=== PATIENT | female | born 1935 | race Caucasian/White ===

== ENCOUNTER 2019-07-04 10:18 | Outpatient (CLI) | payer MEDICARE, MEDICAID, SELFPAY ==
--- NOTE | 2019-07-04 10:35 | MM_ITS ---
WS: [id number] DIAGNOSTIC BILATERAL DIGITAL MAMMOGRAM WITH CAD HISTORY: HX OF BREAST CA, post surgery LEFT breast. COMPARISON: 10/12/2018 and 10/11/2017 and 10/04/2016 TECHNIQUE: Bilateral craniocaudad, mediolateral oblique, and mediolateral views are submitted. Comput er aided detection utilized. Breast composition: The breasts are heterogeneously dense, which may obscure small masses. Scattered calcifications in each breast. Volume loss in the LEFT breast from prior lumpectomy. There is also sk in thickening in the LEFT breast which is probably from prior radiation. No recurrent mass. MM/[place] [id number] IMPRESSION: BI-RADS: 2-Benign FOLLOW UP: 1 Year Follow-up
== END 2019-07-04 10:19 | disposition home or self-care (01) ==
LOC: RADSHAW 10:30
PROVIDERS: Family Provider Family Medicine; PCP Family Medicine; Visit Provider Family Medicine
DX: Z85.3 Personal history of malignant neoplasm of breast (principal)
CPT/HCPCS: 77066

== ENCOUNTER 2019-11-27 11:55 | Emergency (ER) | payer MEDICARE, MEDICAID, SELFPAY ==
[2019-11-27 12:00] VITALS: BP 184/108; PULSE 69; RESP 16; TEMP 36.7; O2SAT 96; BMI 18.1
--- NOTE | 2019-11-27 12:22 | CT_ITS ---
WS: [id number] CT HEAD NONCONTRAST HISTORY: trauma TECHNIQUE: Contiguous axial imaging performed through the brain in 2.5 mm imaging. Bone and soft tiss ue windows. Sagittal and coronal reformats reviewed. All CT scans at [facility] use at ast one of these dose optimization techniques: automated exposure control; mA and/or kV adjustment pe r patient size (includes targeted exams where dose is matched to clinical indication); or iterative r econstruction. DLP: 747.37 mGy.cm COMPARISON: None available. No acute intracranial hemorrhage, midline shift or mass effect. Moderate atrophy and chronic ischemic changes throughout white matter. Multiple bilateral lacunar infarcts in the basal ganglia. Additional lacunar infarct in the RIGHT pos terior cr radiata. Ventricles: Normal size with no hydrocephalus. Paranasal sinuses: As visualized are clear. Mastoid air cells: Well pneumatized. Calvarium and scalp: Skull is intact with no soft tissue edema or swelling. CT/CT head wo con* [id number] IMPRESSION: 1. No acute intracranial hemorrhage or edema. 2. Moderate cerebral atrophy with chronic ischemic changes and lacunar infarct s.
--- NOTE | 2019-11-27 12:22 | ECG_ITS ---
Measurements Intervals [place] Rate: 68 P: 70 RI: 155 QRS: -58 QRSD: 92 T: 27 QT: 405 QTc: 433 SINUS RHYTHM LEFT AXIS DEVIATION [QRS AXIS < -30] INCOMPLETE RIGHT BUNDLE BRANCH BLOCK SEPTAL MYOCARDIAL INFARCTION , PROBABLY OLD [40+ ms Q WAVE IN V1/V2] No previous ECG available for comparison Electronically Signed On 11-27-2019 19:58:40 CDT by Lara Romano M.D. [id number] f
--- NOTE | 2019-11-27 12:22 | CT_ITS ---
WS: [id number] CT CERVICAL SPINE HISTORY: trauma TECHNIQUE: Contiguous 2.5 mm axial imaging performed through the entire cervical spine. Sagittal and coronal reformats also performed. All CT scans at [facility] use at least one of these do se optimization techniques: automated exposure control; mA and/or kV adjustment per patient size (inc ludes targeted exams where dose is matched to clinical indication); or iterative reconstruction. DLP: 289.14 mGy.cm COMPARISON: None available. Posterior cervical alignment is normal. Very mild narrowing of the disc spaces. There is very slight anterior wedging of C5. Facet joints are normally aligned. Craniocervical junction is normal. Lateral masses of C1 and C2 are aligned. C2-C3: Normal. C3-C4: Normal. C4-C5: Facet joint arthritis. No stenosis or fracture. C5-C6: Facet joint arthritis. No stenosis or fracture. C6-C7: Facet joint arthritis without fracture. C7-T1: Normal. Soft tissues are normal. Lung apices are clear. CT/CT cervical spin wo con* [id number] IMPRESSION: 1. No acute cervical spine fracture. 2. Very slight anterior wedging of C5 is probably from remote disease. No acut e fracture lines are identified.
--- NOTE | 2019-11-27 12:22 | XR_ITS ---
WS: [id number] PORTABLE CHEST HISTORY: chest pain COMPARISON: 08/12/2018 Lungs are clear and well expanded. No pleural effusion or pneumothorax. Cardiac size: Normal. Mediastinum/Aorta: Normal mediastinum. No osseous abnormality seen. XR/XR chest 1V portable [id number] IMPRESSION: Unremarkable portable chest.
--- NOTE | 2019-11-27 12:25 | ED_ITS ---
HPI - Fall General: Chief Complaint: Fall Stated Complaint: FALL/LAC TO HEAD Time Seen by Provider: 11/27/19 12:02 Source: patient Mode of arrival: EMS Limitations: no limitations and altered mental status History of Present Illness: HPI Narrative: Patient is an 84-year-old female who presents to ED today via EMS for complaints of a fall. Patient tells me she was walking and then states all of a sudden I just could not walk anymore . Patient does not seem to remember most of the events leading up to the fall. She appears to have baseline dementia. According to EMS who spoke to the daughter, patient has had declining mental and physical function over the past few weeks. MD complaint: fall Onset (ago): hour(s) Fall from: standing Associated symptoms-after fall: Reports difficulty walking and headache(s); Denies abdominal pain, chest pain, lightheadedness or neck pain Review of Systems Const: Denies: fever(s), chills or body aches Eyes: Denies: change in vision or blurry vision Card: Denies: chest pain, palpitations, irregular heart rhythm, edema, swelling of feet/ankles, lightheadedness, syncope, pre-syncope, dyspnea on exertion, orthopnea or leg pain with exertion Resp: Denies: dyspnea or chest congestion GI: Denies: abdominal pain, nausea or vomiting : Denies: flank pain, difficulty voiding, dysuria, urinary frequency or urinary urgency Musc: Denies: neck pain, back pain, extremity pain, extremity swelling, joint pain or joint swelling Neuro: Reports: headache(s), difficulty walking and frequent falls; Denies: numbness in extremities, weakness in extremities, sensory changes, dizziness or Slurred speech present [facility] ED PFSH: Social History Smoking and tobacco status: current some day smoker Physical Exam Const: COMMON NORMALS: no acute distress, patient oriented x3 and alert GENERAL APPEARANCE: cooperative and frail appearing NUTRITIONAL APPEARANCE: cachectic ORIENTATION/CONSCIOUSNESS: Yes oriented to person, Yes oriented to place and Yes oriented to time HENMT: COMMON NORMALS: hearing grossly normal bilaterally, external ears normal, EAC's normal, TM's normal bilaterally, Normal external nose present, moist oral mucous membranes and oropharynx normal HEAD & SCALP: other (1.5cm laceration L posterior scalp) FACE & SINUS: normal facial exam and sinuses nontender NOSE: Normal external nose present EXTERNAL EAR: Yes external ears normal EXTERNAL AUDITORY CANAL: EAC's normal TYMPANIC MEMBRANE: TM's normal bilaterally TEETH & GINGIVA: Yes edentulous Eye: COMMON NORMALS: Equal, round and reactive pupils present, EOMs intact bi laterally, conjunctivae normal and no scleral icterus CONJUNCTIVA: Yes conjunctivae normal PUPIL: Yes Equal, round and reactive pupils present Neck/C-Spine: COMMON NORMALS: full ROM CERVICAL SPINE: Yes cervical ROM normal, No pain with cervical ROM and No Cervical spine tenderness Chest: COMMONS NORMALS: normal inspection of the chest and normal palpation of entire chest wall Resp: COMMON NORMALS: normal respiratory effort and clear to auscultation bilaterally AUSCULTATION: clear to auscultation bilaterally Cardio: COMMON NORMALS: regular rate and regular rhythm RATE: regular rate RHYTHM: regular rhythm GI: COMMON NORMALS: Normal to inspection, nondistended, normoactive bowel sounds present, Soft to palpation, non-tender, No hepatosplenomegaly present and no masses PALPATION: Yes Soft to palpation and Yes No hepatosplenomegaly present : COMMON NORMALS: Yes no CVA tenderness BLADDER/KIDNEY EXAM: Yes no CVA tenderness Back/Pelvis: COMMON NORMALS: no CVA tenderness, thoracic and lumbar spine normal to inspection, no thoracic nor lumbar tenderness, thoraco-lumbar ROM normal and straight leg raise negative bilaterally Extremity: COMMON NORMALS: normal to inspection and full ROM GENERAL: Yes normal exam except as noted Neuro: PATRICIA COMA SCALE: document GCS findings [place] coma scale eye opening: Spontaneous Patricia coma scale verbal response: Orientated Patricia coma scale motor response: Obey commands Patricia coma scale total score: 15 COMMON NORMALS: patient oriented x3, CN's II-XII intact bilaterally, moves all extremities, no focal motor deficits and no sensory deficits noted SENSORIUM/ORIENTATION: Yes alert, Yes oriented to person, Yes oriented to place and Yes oriented to time SPEECH: speech normal Skin: OTHER: small skin tear to L buttock Procedures Laceration Laceration 1: Site: scalp Side (If applicable): left Size (cm): 1.5 Description: linear Depth: simple, single layer Pre-repair: wound explored and irrigated extensively Skin layer closed with: other (3 angel) Course Vital Signs: Vital signs: Vital Signs Temperature 98.1 F 11/27/19 12:00 Pulse Rate 69 11/27/19 16:20 Respiratory Rate 11 L 11/27/19 16:20 Blood Pressure 155/106 11/27/19 16:20 Pulse Oximetry 91 11/27/19 16:20 MDM - Fall MDM Narrative: Medical decision making narrative: Daughter has arrived and answers any further questions. Again she states patient has had trouble with ambulation over the past several weeks. She states there is no confirmed diagnosis of dementia however she suspects this. Daughter states she is at her baseline currently. I spoke to daughter extensively about patient being a significant fall risk living alone and she agrees. Patient was able to ambulate here in ED w/o difficulty although she seemed very unsteady on her feet. Daughter states if patient is cleared medically she would like to take her home and agrees to stay with patient until they can get follow-up with Dr. Whaley. They agree to then speak to him about in-home care or senior living home placement. Pts work up here showing possible UTI-will treat for this. Initial trop at 23 (this was not ordered as a series so when it was elevated I added another). Repeat trop at 20. EKG w/o ischemic changes. Head CT/Cervical CT normal. Small laceration on her head repaired. Lab Data: Labs: Lab Results 11/27/19 11/27/19 11/27/19 Range/Units 12:35 12:35 12:35 WBC 12.0 H (4.0-10.0) 10^3/ uL RBC 4.68 (4.1-5.3) 10^6/u L Hgb 14.1 (11.5-15.3) g/dL Hct 44.4 (37.0-47.0) % MCV 94.9 (81-99) fL MCH 30.1 (28.0-34.0) pg MCHC 31.8 (30.0-36.0) g/dL RDW 12.7 (12.1-15.1) % Plt Count 190 (130-400) 10^3/c mm MPV 10.7 H (7.4-10.4) fL Neut % (Auto) 81.2 % Lymph % (Auto) 11.5 % [place] % (Auto) 5.9 % Eos % (Auto) 0.5 % Baso % (Auto) 0.3 % Neut # (Auto) 9.7 H (1.8-7.7) 10^3/u L Lymph # (Auto) 1.4 (0.8-4.8) 10^3/u L [place] # (Auto) 0.7 (0.2-0.9) 10^3/u L Eos # (Auto) 0.1 (0.0-0.8) 10^3/u L Baso # (Auto) 0.0 (0.0-0.1) 10^3/u L Nucleated RBC % (a uto) 0 % Nucleated RBCs # 0.0 /100WBC PT (10.5-13.3) SECO NDS INR (0.8-1.2) APTT (23.9-36.7) SECO NDS Sodium 138 (136-145) mmol/L Potassium 4.4 (3.5-5.1) mmol/L Chloride 103 (98-107) mmol/L Carbon Dioxide 26 (22-29) mmol/L Anion Gap 13.4 (5-19) BUN 16 (8-23) mg/dL Creatinine 0.9 (0.5-0.9) mg/dL Glucose 91 (65-115) mg/dL Calculated Osmolal ity 282 L (285-295) mOsm/k g Calcium 8.9 (8.5-10.5) mg/dL Magnesium 2.0 (1.7-2.3) mg/dL Total Bilirubin 0.7 (0.15-1.2) mg/dL AST 21 (0-32) U/L ALT 16 (0-33) U/L Alkaline Phosphata se 71 (35-105) IU/L Troponin T Gen 5 n g/L 23 H (0-10) ng/mL Total Protein 5.7 L (6.6-8.7) g/dL Albumin 4.0 (3.5-5.2) g/dL Globulin 1.7 (1.3-4.6) g/dL Urine Color (Yellow) Urine Appearance (CLEAR) Urine pH (5-7) Ur Specific Gravit y (1.005-1.030) Urine Protein (Negative) Urine Glucose (UA) (Normal) Urine Ketones (Negative) Urine Blood (Negative) Urine Nitrate (Negative) Urine Bilirubin (NEGATIVE) Urine Urobilinogen (Negative) mg/dL Ur Leukocyte Aileen ase (Negative) Urine RBC (0-2) /hpf Urine WBC (0-5) /hpf Ur Squamous Epith Cells (0-5) Urine Bacteria (NONE) Urine Opiates Scre en (Negative) ng/mL Ur Barbiturates Sc reen (Negative) ng/mL Ur Phencyclidine S crn (Negative) ng/mL Ur Amphetamines Sc reen (Negative) ng/mL U Benzodiazepines Scrn (Negative) ng/mL Urine Cocaine Scre en (Negative) ng/mL U Marijuana (THC) Screen (Negative) ng/mL 11/27/19 11/27/19 11/27/19 Range/Units 13:29 13:29 13:40 WBC (4.0-10.0) 10^3/ uL RBC (4.1-5.3) 10^6/u L Hgb (11.5-15.3) g/dL Hct (37.0-47.0) % MCV (81-99) fL MCH (28.0-34.0) pg MCHC (30.0-36.0) g/dL RDW (12.1-15.1) % Plt Count (130-400) 10^3/c mm MPV (7.4-10.4) fL Neut % (Auto) % Lymph % (Auto) % [place] % (Auto) % Eos % (Auto) % Baso % (Auto) % Neut # (Auto) (1.8-7.7) 10^3/u L Lymph # (Auto) (0.8-4.8) 10^3/u L [place] # (Auto) (0.2-0.9) 10^3/u L Eos # (Auto) (0.0-0.8) 10^3/u L Baso # (Auto) (0.0-0.1) 10^3/u L Nucleated RBC % (a uto) % Nucleated RBCs # /100WBC PT 14.00 H (10.5-13.3) SECO NDS INR 1.05 (0.8-1.2) APTT 28.0 (23.9-36.7) SECO NDS Sodium (136-145) mmol/L Potassium (3.5-5.1) mmol/L Chloride (98-107) mmol/L Carbon Dioxide (22-29) mmol/L Anion Gap (5-19) BUN (8-23) mg/dL Creatinine (0.5-0.9) mg/dL Glucose (65-115) mg/dL Calculated Osmolal ity (285-295) mOsm/k g Calcium (8.5-10.5) mg/dL Magnesium (1.7-2.3) mg/dL Total Bilirubin (0.15-1.2) mg/dL AST (0-32) U/L ALT (0-33) U/L Alkaline Phosphata se (35-105) IU/L Troponin T Gen 5 n g/L (0-10) ng/mL Total Protein (6.6-8.7) g/dL Albumin (3.5-5.2) g/dL Globulin (1.3-4.6) g/dL Urine Color Yellow (Yellow) Urine Appearance Sl cloudy A (CLEAR) Urine pH 6 (5-7) Ur Specific Gravit y 1.015 (1.005-1.030) Urine Protein Neg (Negative) Urine Glucose (UA) Norm (Normal) Urine Ketones Negative (Negative) Urine Blood Neg (Negative) Urine Nitrate Negative (Negative) Urine Bilirubin Neg (NEGATIVE) Urine Urobilinogen Norm (Negative) mg/dL Ur Leukocyte Aileen ase 1+ H (Negative) Urine RBC 0-4 H (0-2) /hpf Urine WBC 15-25 H (0-5) /hpf Ur Squamous Epith Cells 10-15 H (0-5) Urine Bacteria 1+ H (NONE) Urine Opiates Scre en Negative (Negative) ng/mL Ur Barbiturates Sc reen Negative (Negative) ng/mL Ur Phencyclidine S crn Negative (Negative) ng/mL Ur Amphetamines Sc reen Negative (Negative) ng/mL U Benzodiazepines Scrn Positive H (Negative) ng/mL Urine Cocaine Scre en Negative (Negative) ng/mL U Marijuana (THC) Screen Negative (Negative) ng/mL 11/27/19 Range/Units 15:25 WBC (4.0-10.0) 10^3/ uL RBC (4.1-5.3) 10^6/u L Hgb (11.5-15.3) g/dL Hct (37.0-47.0) % MCV (81-99) fL MCH (28.0-34.0) pg MCHC (30.0-36.0) g/dL RDW (12.1-15.1) % Plt Count (130-400) 10^3/c mm MPV (7.4-10.4) fL Neut % (Auto) % Lymph % (Auto) % [place] % (Auto) % Eos % (Auto) % Baso % (Auto) % Neut # (Auto) (1.8-7.7) 10^3/u L Lymph # (Auto) (0.8-4.8) 10^3/u L [place] # (Auto) (0.2-0.9) 10^3/u L Eos # (Auto) (0.0-0.8) 10^3/u L Baso # (Auto) (0.0-0.1) 10^3/u L Nucleated RBC % (a uto) % Nucleated RBCs # /100WBC PT (10.5-13.3) SECO NDS INR (0.8-1.2) APTT (23.9-36.7) SECO NDS Sodium (136-145) mmol/L Potassium (3.5-5.1) mmol/L Chloride (98-107) mmol/L Carbon Dioxide (22-29) mmol/L Anion Gap (5-19) BUN (8-23) mg/dL Creatinine (0.5-0.9) mg/dL Glucose (65-115) mg/dL Calculated Osmolal ity (285-295) mOsm/k g Calcium (8.5-10.5) mg/dL Magnesium (1.7-2.3) mg/dL Total Bilirubin (0.15-1.2) mg/dL AST (0-32) U/L ALT (0-33) U/L Alkaline Phosphata se (35-105) IU/L Troponin T Gen 5 n g/L 20 H (0-10) ng/mL Total Protein (6.6-8.7) g/dL Albumin (3.5-5.2) g/dL Globulin (1.3-4.6) g/dL Urine Color (Yellow) Urine Appearance (CLEAR) Urine pH (5-7) Ur Specific Gravit y (1.005-1.030) Urine Protein (Negative) Urine Glucose (UA) (Normal) Urine Ketones (Negative) Urine Blood (Negative) Urine Nitrate (Negative) Urine Bilirubin (NEGATIVE) Urine Urobilinogen (Negative) mg/dL Ur Leukocyte Aileen ase (Negative) Urine RBC (0-2) /hpf Urine WBC (0-5) /hpf Ur Squamous Epith Cells (0-5) Urine Bacteria (NONE) Urine Opiates Scre en (Negative) ng/mL Ur Barbiturates Sc reen (Negative) ng/mL Ur Phencyclidine S crn (Negative) ng/mL Ur Amphetamines Sc reen (Negative) ng/mL U Benzodiazepines Scrn (Negative) ng/mL Urine Cocaine Scre en (Negative) ng/mL U Marijuana (THC) Screen (Negative) ng/mL Imaging Data^: CT Head: Radiologist's impression: [place] [address] CT Scan Report Signed Patient: Andree Moe Unit #: [id number] : 1935 Age/Sex: 84 / F ADM Date: 11/27/19 Loc: ER Room/Bed: Attending Dr: Ordering Provider/Ordering MD: Coral Hoffman Date of Service: 11/27/19 Procedure(s): CT head wo con* [id number] Accession Number(s): [id number] Report Number: [id number] WS: [id number] CT HEAD NONCONTRAST HISTORY: trauma TECHNIQUE: Contiguous axial imaging performed through the brain in 2.5 mm imaging. Bone and soft tissue windows. Sagittal and coronal reformats reviewed. All CT scans at [facility] use at least one of these dose optimization techniques: automated exposure control; mA and/or kV adjustment per patient size (includes targeted exams where dose is matched to clinical indication); or iterative reconstruction. DLP: 747.37 mGy.cm COMPARISON: None available. No acute intracranial hemorrhage, midline shift or mass effect. Moderate atrophy and chronic ischemic changes throughout white matter. Multiple bilateral lacunar infarcts in the basal ganglia. Additional lacunar infarct in the RIGHT posterior cr radiata. Ventricles: Normal size with no hydrocephalus. Paranasal sinuses: As visualized are clear. Mastoid air cells: Well pneumatized. Calvarium and scalp: Skull is intact with no soft tissue edema or swelling. CT/CT head wo con* [id number] IMPRESSION: 1. No acute intracranial hemorrhage or edema. 2. Moderate cerebral atrophy with chronic ischemic changes and lacunar infarcts. Dictated By: Hoa Michelle DO Signed By: Hoa Michelle DO Signed Date/Time: 11/27/19 1301 DD/ 1258 CXR: Radiologist's impression: [place] [address] XRay Report Signed Patient: Andree Moe Unit #: [id number] : 1935 Age/Sex: 84 / F ADM Date: 11/27/19 Loc: ER Room/Bed: Attending Dr: Ordering Provider/Ordering MD: Coral Hoffman Date of Service: 11/27/19 Procedure(s): XR chest 1V portable [id number] Accession Number(s): [id number] Report Number: [id number] WS: [id number] PORTABLE CHEST HISTORY: chest pain COMPARISON: 08/12/2018 Lungs are clear and well expanded. No pleural effusion or pneumothorax. Cardiac size: Normal. Mediastinum/Aorta: Normal mediastinum. No osseous abnormality seen. XR/XR chest 1V portable [id number] IMPRESSION: Unremarkable portable chest. Dictated By: Hoa Michelle DO Signed By: Hoa Michelle DO Signed Date/Time: 11/27/19 1246 DD/ 1246 CT cervical : Radiologist's impression: [place] [address] CT Scan Report Signed Patient: Andree Moe Unit #: [id number] : 1935 Age/Sex: 84 / F ADM Date: 11/27/19 Loc: ER Room/Bed: Attending Dr: Ordering Provider/Ordering MD: Coral Hoffman Date of Service: 11/27/19 Procedure(s): CT cervical spin wo con* [id number] Accession Number(s): [id number] Report Number: [id number] WS: [id number] CT CERVICAL SPINE HISTORY: trauma TECHNIQUE: Contiguous 2.5 mm axial imaging performed through the entire cervical spine. Sagittal and coronal reformats also performed. All CT scans at [facility] use at least one of these dose optimization techniques: automated exposure control; mA and/or kV adjustment per patient size (includes targeted exams where dose is matched to clinical indication); or iterative reconstruction. DLP: 289.14 mGy.cm COMPARISON: None available. Posterior cervical alignment is normal. Very mild narrowing of the disc spaces. There is very slight anterior wedging of C5. Facet joints are normally aligned. Craniocervical junction is normal. Lateral masses of C1 and C2 are aligned. C2-C3: Normal. C3-C4: Normal. C4-C5: Facet joint arthritis. No stenosis or fracture. C5-C6: Facet joint arthritis. No stenosis or fracture. C6-C7: Facet joint arthritis without fracture. C7-T1: Normal. Soft tissues are normal. Lung apices are clear. CT/CT cervical spin wo con* [id number] IMPRESSION: 1. No acute cervical spine fracture. 2. Very slight anterior wedging of C5 is probably from remote disease. No acute fracture lines are identified. Dictated By: Hoa Michelle DO Signed By: Hoa Michelle DO Signed Date/Time: 11/27/19 1306 DD/ 1301 Discharge Plan Discharge Patient Disposition: Home, Self-Care Clinical Impression: At high risk for falls, Acute cystitis without hematuria Fall Qualifiers: Encounter type: initial encounter Qualified Code(s): W19.XXXA - Unspecified fall, initial encounter Condition: Stable Prescriptions: New Macrobid 100 mg capsule 100 mg PO BID 7 Days Qty: 14 RF: 0 No Action atorvastatin 10 mg tablet 10 mg PO DAILY RF: 0 lorazepam 0.5 mg tablet 0.5 mg PO BID PRN (Reason: Anxiety) RF: 0 metoprolol succinate 25 mg tablet extended release 24 hr 25 mg PO DAILY RF: 0 fluticasone propionate 50 mcg/actuation spray,suspension 1 spray INTRANASAL DAILY RF: 0 Discharge Orders: Discharge Order (Routine); Ordered 11/27/19 Ordered By: Coral Hoffman Referrals: Neal Whaley MD [Primary Care Provider] - Activity Restrictions/Additional Instructions: To Mary/Daughter/DPOA: As discussed Ms. Moe has been cleared medically. She does appear to have a small urinary tract infection that will be treated with antibiotics. We spoke extensively about patient being a significant fall risk at home. You have elected to take patient home and stated you could stay with her to ensure her safety. As we discussed I would like her to follow-up with her primary care provider Dr. Whaley as soon as possible to discuss further care for patient including possible in-home care or residential placement. You may return to the emergency department at anytime for any further concerns. Discharge Date/Time: 11/27/19 16:24 Coding Level of Care Code ED Toy Mechanic for Julio Cesarg Fwd Exam Comprehensive
[2019-11-27 12:46] LABS: Basophils % 0.3 %; Eosinophils # 0.1 10^3/uL (0.0-0.8); Eosinophils % 0.5 %; Hematocrit 44.4 % (37.0-47.0); Hemoglobin 14.1 g/dL (11.5-15.3); Lymphocytes # 1.4 10^3/uL (0.8-4.8); Lymphocytes % 11.5 %; Mean Corpuscular HGB Conc 31.8 g/dL (30.0-36.0); Mean Corpuscular Hemoglobin 30.1 pg (28.0-34.0); Mean Corpuscular Volume 94.9 fL (81-99); Mean Platelet Volume 10.7 fL (7.4-10.4); Monocytes # 0.7 10^3/uL (0.2-0.9); Monocytes % 5.9 %; Neutrophils # 9.7 10^3/uL (1.8-7.7); Neutrophils % 81.2 %; Nucleated Red Blood Cells % 0 %; Platelet Count 190 10^3/cmm (130-400); Red Blood Count 4.68 10^6/uL (4.1-5.3); Red Cell Distribution Width 12.7 % (12.1-15.1)
[2019-11-27 13:01] LABS: Alanine Aminotransferase 16 U/L (0-33); Alkaline Phosphatase 71 IU/L (35-105); Anion Gap 13.4 (5-19); Aspartate Amino Transferase 21 U/L (0-32); Blood Urea Nitrogen 16 mg/dL (8-23); Calcium 8.9 mg/dL (8.5-10.5); Carbon Dioxide 26 mmol/L (22-29); Chloride 103 mmol/L (98-107); Globulin 1.7 g/dL (1.3-4.6); Glucose 91 mg/dL (65-115); Osmolality Calculated 282 mOsm/kg (285-295); Potassium 4.4 mmol/L (3.5-5.1); Sodium 138 mmol/L (136-145); Total Bilirubin 0.7 mg/dL (0.15-1.2); Total Protein 5.7 g/dL (6.6-8.7)
[2019-11-27 13:49] LABS: Amphetamines Screen Urine Negative (Negative); Barbiturates Screen Urine Negative (Negative); Benzodiazepines Screen Urine Positive (Negative); Cocaine Screen Urine Negative (Negative); Opiate Screen Urine Negative (Negative); PCP Screen Urine Negative (Negative); THC Screen Urine Negative (Negative)
[2019-11-27 14:00] LABS: Add Urine Microscopic? YES; Bilirubin Urine Neg (NEGATIVE); Blood Urine Neg (Negative); Glucose Urine UA Norm (Normal); Ketones Urine Negative (Negative); Leukocyte Esterase Urine 1+ (Negative); Nitrate Urine Negative (Negative); Protein Urine Neg (Negative); RBC Urine 0-4 /hpf (0-2); Specific Gravity, Urine 1.015 (1.005-1.030); Urine Color Yellow (Yellow); Urobilinogen Urine Norm (Negative); pH Urine 6 (5-7)
[2019-11-27 14:01] LABS: Bacteria Urine 1+; WBC Urine 15-25 /hpf (0-5)
[2019-11-27 14:25] LABS: INR 1.05 (0.8-1.2)
[2019-11-27 15:02] VITALS: RESP 18; O2SAT 98
[2019-11-27] MEDS: morphine 4 mg/mL SDV 1 mL 2 MG IVP (15:02)
[2019-11-27] MEDS: ondansetron 2 mg/ML SDV 2 mL IVP (15:02)
[2019-11-27 15:08] LABS: Troponin T (5th) Once 23 ng/mL (0-10)
--- NOTE | 2019-11-27 15:20 | ECG_ITS ---
Measurements Intervals [place] Rate: 87 P: 83 NJ: 156 QRS: -58 QRSD: 90 T: 39 QT: 392 QTc: 472 SINUS RHYTHM WITH FREQUENT SUPRAVENTRICULAR PREMATURE COMPLEXES LEFT AXIS DEVIATION [QRS AXIS < -30] POSSIBLE RIGHT VENTRICULAR CONDUCTION DELAY [RSR (QR) IN V1/V2] SEPTAL MYOCARDIAL INFARCTION , OF INDETERMINATE AGE [40+ ms Q WAVE IN V1/V2] No previous ECG available for comparison Electronically Signed On 11-27-2019 19:46:24 CDT by Lara Romano M.D. [id number]
[2019-11-27 15:54] LABS: Troponin T (5th) Once 20 ng/mL (0-10)
[2019-11-27 16:20] VITALS: BP 155/106; PULSE 69; RESP 11; O2SAT 91
== END 2019-11-27 16:24 | disposition home or self-care (01) ==
PROVIDERS: Emergency Provider Physician Assistant; PCP Family Medicine
DX: N30.00 Acute cystitis without hematuria (principal); Z91.81 History of falling; S01.01XA Laceration without foreign body of scalp, initial encounter; F17.210 Nicotine dependence, cigarettes, uncomplicated; W19.XXXA Unspecified fall, initial encounter; R07.9 Chest pain, unspecified
CPT/HCPCS: 12001; 12345; 36415; 70450; 71045; 72125; 80053; 80306; 81001; 83735; 84484; 85025; 85610; 85730; 93005; 96374; 96375; 99282; 99284; J2270; J2405

== ENCOUNTER 2020-03-11 15:27 | Emergency (ER) | payer MEDICARE, MEDICAID, SELFPAY ==
[2020-03-11 15:31] VITALS: BP 187/100; PULSE 80; RESP 18; TEMP 38; O2SAT 93
--- NOTE | 2020-03-11 15:51 | CTR_ITS ---
PROCEDURE INFORMATION: Exam: CT Cervical Spine Without Contrast Exam date and time: 03/11/2020 4:00 PM Age: 85 years old Clinical indication: Injury or trauma; Fall; Initial encounter; Blunt trauma TECHNIQUE: Imaging protocol: Computed tomography images of the cervical spine without contrast. Radiation optimization: All CT scans at this facility use at least one of these dose optimization techniques: automated exposure control; mA and/or kV adjustment per patient size (includes targeted exams where dose is matched to clinical indication); or iterative reconstruction. COMPARISON: CT cervical spin wo con* [id number] 11/27/2019 12:47 PM RADIATION DOSE METRICS: Total DLP (mGy-cm): 342.98 FINDINGS: Vertebrae: Alignment is unchanged with upper cervical straightening and a focal lordosis centered at C6-C7. No acute fracture evident. Mild degenerative disc space narrowing C5-C6. Small amount of degenerative vacuum phenomenon C6-C7. Degenerative facet changes most pronounced on the left at C4-C5. Soft tissues: Unremarkable. Lungs: Minor scarring in the lung apices. CT/CT cervical spin wo con* [id number] IMPRESSION: No acute fracture evident. Degenerative changes as described above. Radiation Dose CTDIVOL = (mGy): DLP = 342.98 (mGy-cm)
--- NOTE | 2020-03-11 15:51 | CTR_ITS ---
PROCEDURE INFORMATION: Exam: CT Head Without Contrast Exam date and time: 03/11/2020 4:00 PM Age: 85 years old Clinical indication: Injury or trauma; Fall; Injury details: PT scanned x 2. Difficulty following instructions and staying still; Additional info: Trauma/fall TECHNIQUE: Imaging protocol: Computed tomography of the head without contrast. Radiation optimization: All CT scans at this facility use at least one of these dose optimization techniques: automated exposure control; mA and/or kV adjustment per patient size (includes targeted exams where dose is matched to clinical indication); or iterative reconstruction. COMPARISON: CT head wo con* [id number] 11/27/2019 12:43 PM RADIATION DOSE METRICS: Total DLP (mGy-cm): 1539.71 FINDINGS: Brain: No acute intracranial mass or bleed. Moderate generalized cerebral atrophy. Moderate amount of cerebral hemisphere subcortical and periventricular white matter low-density which appears chronic. Chronic 9 mm lacunar infarction right posterior cr radiata region, unchanged. Ventricles: Normal. No ventriculomegaly. Bones/joints: Unremarkable. No acute fracture. Sinuses: Visualized sinuses are unremarkable. No fluid levels. Mastoid air cells: Visualized mastoid air cells are well aerated. Soft tissues: Unremarkable. CT/CT head wo con* [id number] IMPRESSION: No acute process evident. Chronic findings as described above. Radiation Dose CTDIVOL = (mGy): DLP = 1539.71 (mGy-cm)
--- NOTE | 2020-03-11 15:52 | ED_ITS ---
Documented by User: ALIDA Sanchez 03/11/20 16:41 HPI - Altered Mental Status General: Chief Complaint: Fall Stated Complaint: GENERALIZED WEAKNESS Time Seen by Provider: 03/11/20 15:33 Source: patient, family and EMS Mode of arrival: EMS Limitations: altered mental status History of Present Illness: HPI narrative: Patient is an 85-year-old female brought by EMS from [facility] for complaints of altered mental status and a fall. Daughter has met patient here in the emergency department and is able to provide further history. Daughter tells me this morning around 9-9:30 AM she spoke to her mother on the phone and immediately knew that she was not acting right . She alerted the alf staff who afterwards checked on patient and found her sleeping in her bed. They did not awake her at this time. They state that patient woke up on her own and was able to walk to the lunchroom and eat lunch. They state afterwards she went and laid back down on a couch and when they checked on her she was lying on the floor. jail and daughter states that she is less responsive than normal. MD complaint: altered mental status and decreased responsiveness Onset (ago): hour(s) Timing confirmed by: family member Review of Systems General: Reports: ROS unobtainable due to mental status PFS ED PFSH: Medical History (Updated 03/11/20 @ 19:02 by Ariel Owens MD) Constipation Dementia Hyperlipidemia Hypertension Family History (Updated 03/11/20 @ 18:54 by Ariel Owens MD) Other Dementia Social History (Updated 03/11/20 @ 18:54 by Ariel Owens MD) Smoking and tobacco status: former smoker Alcohol intake: never Physical Exam Const: COMMON NORMALS: no acute distress and alert EXAM LIMITATIONS: altered mental status ORIENTATION/CONSCIOUSNESS: Yes awake, Yes oriented to person, Yes oriented to place (knows she is in a hospital) and Yes oriented to time HENMT: COMMON NORMALS: normocephalic and atraumatic HEAD & SCALP: normocephalic and atraumatic OTHER: pt has very faint abrasion to R forehead Resp: COMMON NORMALS: normal respiratory effort and clear to auscultation bilaterally AUSCULTATION: clear to auscultation bilaterally Cardio: COMMON NORMALS: regular rate and regular rhythm RATE: regular rate RHYTHM: regular rhythm GI: COMMON NORMALS: Normal to inspection, nondistended, normoactive bowel sounds present, Soft to palpation and no masses AUSCULTATION: Yes normoactive bowel sounds PALPATION: Yes Soft to palpation Extremity: COMMON NORMALS: capillary refill normal, no clubbing, cyanosis or edema, no calf tenderness and no pedal edema GENERAL: Yes normal exam except as noted Neuro: PATRICIA COMA SCALE: document GCS findings Carnegie coma scale eye opening: Spontaneous Patricia coma scale verbal response: Orientated Patricia coma scale motor response: Obey commands Carnegie coma scale total score: 15 COMMON NORMALS: CN's II-XII intact bilaterally, moves all extremities and no focal motor deficits SENSORIUM/ORIENTATION: Yes alert, Yes oriented to person, Yes oriented to place (knows she is in a hospital) and Yes oriented to time OTHER: patient is able to follow commands here however does appear confused at times; patient can tell me her name, , knows her daughter in the room, and knows she is in the hospital; she can raise all extremities off the table and told them, she can squeeze my fingers; cranial nerves appear intact Skin: COMMON NORMALS: no rashes or lesions noted GENERAL SKIN EXAM: no rashes or lesions noted Course Vital Signs: Vital signs: Vital Signs Temperature 100.4 F H 03/11/20 15:31 Pulse Rate 87 03/11/20 18:31 Respiratory Rate 20 H 03/11/20 18:31 Blood Pressure 207/119 03/11/20 18:31 Pulse Oximetry 94 03/11/20 17:07 MDM - Altered Mental Status Lab Data: Labs: Lab Results 03/11/20 03/11/20 03/11/20 Range/Units 16:05 16:05 16:05 WBC 6.5 (4.0-10.0) 10^3/ uL RBC 4.66 (4.1-5.3) 10^6/u L Hgb 14.4 (11.5-15.3) g/dL Hct 43.5 (37.0-47.0) % MCV 93.3 (81-99) fL MCH 30.9 (28.0-34.0) pg MCHC 33.1 (30.0-36.0) g/dL RDW 12.7 (12.1-15.1) % Plt Count 182 (130-400) 10^3/c mm MPV 10.1 (7.4-10.4) fL Neut % (Auto) 80.1 % Lymph % (Auto) 6.6 % [place] % (Auto) 12.4 % Eos % (Auto) 0.0 % Baso % (Auto) 0.3 % Neut # (Auto) 5.21 (1.8-7.7) 10^3/u L Lymph # (Auto) 0.4 L (0.8-4.8) 10^3/u L [place] # (Auto) 0.8 (0.2-0.9) 10^3/u L Eos # (Auto) 0.0 (0.0-0.8) 10^3/u L Baso # (Auto) 0.0 (0.0-0.1) 10^3/u L Nucleated RBC % (a uto) 0 % Nucleated RBCs # 0.0 /100WBC D-Dimer (0-0.59) ug/mIFE U Sodium 136 (136-145) mmol/L Potassium 3.4 L (3.5-5.1) mmol/L Chloride 99 (98-107) mmol/L Carbon Dioxide 26 (22-29) mmol/L Anion Gap 14.4 (5-19) BUN 10 (8-23) mg/dL Creatinine 0.8 (0.5-0.9) mg/dL GFR Calculation Not Reportable Glucose 102 (65-115) mg/dL Calculated Osmolal ity 278 L (285-295) mOsm/k g Lactic Acid 0.9 (0.5-2.2) mmol/L Calcium 8.6 (8.5-10.5) mg/dL Magnesium (1.7-2.3) mg/dL Ferritin (15-150) ng/mL Total Bilirubin 0.4 (0.15-1.2) mg/dL AST 32 (0-32) U/L ALT 16 (0-33) U/L Alkaline Phosphata se 82 (35-105) IU/L Troponin T Baselin e (0-10) ng/L Troponin T 120 Min hoopa (0-10) ng/L Delta Troponin T (0-10) ABS# Troponin T Hi Sens 6Hr (0-10) ng/L Troponin T Hi Sens 6Hr Delta (0-12) ng/L Total Protein 6.2 L (6.6-8.7) g/dL Albumin 4.1 (3.5-5.2) g/dL Globulin 2.1 (1.3-4.6) g/dL Procalcitonin (0-0.5) ng/mL TSH (0.27-4.20) uIU/ mL Urine Color (Yellow) Urine Appearance (CLEAR) Urine pH (5-7) Ur Specific Gravit y (1.005-1.030) Urine Protein (Negative) Urine Glucose (UA) (Normal) Urine Ketones (Negative) Urine Blood (Negative) Urine Nitrate (Negative) Urine Bilirubin (Negative) Urine Urobilinogen (Negative) mg/dL Ur Leukocyte Aileen ase (Negative) Urine RBC (0-2) /hpf Urine WBC (0-5) /hpf Ur Squamous Epith Cells (0-5) /hpf Amorphous Sediment Urine Bacteria (NONE) /hpf Urine Opiates Scre en (Negative) ng/mL Ur Barbiturates Sc reen (Negative) ng/mL Ur Phencyclidine S crn (Negative) ng/mL Ur Amphetamines Sc reen (Negative) ng/mL U Benzodiazepines Scrn (Negative) ng/mL Urine Cocaine Scre en (Negative) ng/mL U Marijuana (THC) Screen (Negative) ng/mL SARS-CoV-2 Ag (Rap id) (Negative) 03/11/20 03/11/20 03/11/20 Range/Units 16:05 16:05 16:23 WBC (4.0-10.0) 10^3/ uL RBC (4.1-5.3) 10^6/u L Hgb (11.5-15.3) g/dL Hct (37.0-47.0) % MCV (81-99) fL MCH (28.0-34.0) pg MCHC (30.0-36.0) g/dL RDW (12.1-15.1) % Plt Count (130-400) 10^3/c mm MPV (7.4-10.4) fL Neut % (Auto) % Lymph % (Auto) % [place] % (Auto) % Eos % (Auto) % Baso % (Auto) % Neut # (Auto) (1.8-7.7) 10^3/u L Lymph # (Auto) (0.8-4.8) 10^3/u L [place] # (Auto) (0.2-0.9) 10^3/u L Eos # (Auto) (0.0-0.8) 10^3/u L Baso # (Auto) (0.0-0.1) 10^3/u L Nucleated RBC % (a uto) % Nucleated RBCs # /100WBC D-Dimer 0.57 (0-0.59) ug/mIFE U Sodium (136-145) mmol/L Potassium (3.5-5.1) mmol/L Chloride (98-107) mmol/L Carbon Dioxide (22-29) mmol/L Anion Gap (5-19) BUN (8-23) mg/dL Creatinine (0.5-0.9) mg/dL GFR Calculation Glucose (65-115) mg/dL Calculated Osmolal ity (285-295) mOsm/k g Lactic Acid (0.5-2.2) mmol/L Calcium (8.5-10.5) mg/dL Magnesium (1.7-2.3) mg/dL Ferritin (15-150) ng/mL Total Bilirubin (0.15-1.2) mg/dL AST (0-32) U/L ALT (0-33) U/L Alkaline Phosphata se (35-105) IU/L Troponin T Baselin e 19 H (0-10) ng/L Troponin T 120 Min hoopa (0-10) ng/L Delta Troponin T (0-10) ABS# Troponin T Hi Sens 6Hr (0-10) ng/L Troponin T Hi Sens 6Hr Delta (0-12) ng/L Total Protein (6.6-8.7) g/dL Albumin (3.5-5.2) g/dL Globulin (1.3-4.6) g/dL Procalcitonin (0-0.5) ng/mL TSH (0.27-4.20) uIU/ mL Urine Color Yellow (Yellow) Urine Appearance Clear (CLEAR) Urine pH 6.5 (5-7) Ur Specific Gravit y 1.015 (1.005-1.030) Urine Protein 1+ H (Negative) Urine Glucose (UA) Norm (Normal) Urine Ketones Negative (Negative) Urine Blood 3+ H (Negative) Urine Nitrate Negative (Negative) Urine Bilirubin Neg (Negative) Urine Urobilinogen Norm (Negative) mg/dL Ur Leukocyte Aileen ase Negative (Negative) Urine RBC 0-4 H (0-2) /hpf Urine WBC None (0-5) /hpf Ur Squamous Epith Cells 0-4 H (0-5) /hpf Amorphous Sediment Not Reportable Urine Bacteria Trace (NONE) /hpf Urine Opiates Scre en (Negative) ng/mL Ur Barbiturates Sc reen (Negative) ng/mL Ur Phencyclidine S crn (Negative) ng/mL Ur Amphetamines Sc reen (Negative) ng/mL U Benzodiazepines Scrn (Negative) ng/mL Urine Cocaine Scre en (Negative) ng/mL U Marijuana (THC) Screen (Negative) ng/mL SARS-CoV-2 Ag (Rap id) (Negative) 03/11/20 03/11/20 03/11/20 Range/Units 16:23 16:41 17:58 WBC (4.0-10.0) 10^3/ uL RBC (4.1-5.3) 10^6/u L Hgb (11.5-15.3) g/dL Hct (37.0-47.0) % MCV (81-99) fL MCH (28.0-34.0) pg MCHC (30.0-36.0) g/dL RDW (12.1-15.1) % Plt Count (130-400) 10^3/c mm MPV (7.4-10.4) fL Neut % (Auto) % Lymph % (Auto) % [place] % (Auto) % Eos % (Auto) % Baso % (Auto) % Neut # (Auto) (1.8-7.7) 10^3/u L Lymph # (Auto) (0.8-4.8) 10^3/u L [place] # (Auto) (0.2-0.9) 10^3/u L Eos # (Auto) (0.0-0.8) 10^3/u L Baso # (Auto) (0.0-0.1) 10^3/u L Nucleated RBC % (a uto) % Nucleated RBCs # /100WBC D-Dimer (0-0.59) ug/mIFE U Sodium (136-145) mmol/L Potassium (3.5-5.1) mmol/L Chloride (98-107) mmol/L Carbon Dioxide (22-29) mmol/L Anion Gap (5-19) BUN (8-23) mg/dL Creatinine (0.5-0.9) mg/dL GFR Calculation Glucose (65-115) mg/dL Calculated Osmolal ity (285-295) mOsm/k g Lactic Acid (0.5-2.2) mmol/L Calcium (8.5-10.5) mg/dL Magnesium 1.8 (1.7-2.3) mg/dL Ferritin (15-150) ng/mL Total Bilirubin (0.15-1.2) mg/dL AST (0-32) U/L ALT (0-33) U/L Alkaline Phosphata se (35-105) IU/L Troponin T Baselin e (0-10) ng/L Troponin T 120 Min hoopa 19.68 H (0-10) ng/L Delta Troponin T 0.68 (0-10) ABS# Troponin T Hi Sens 6Hr (0-10) ng/L Troponin T Hi Sens 6Hr Delta (0-12) ng/L Total Protein (6.6-8.7) g/dL Albumin (3.5-5.2) g/dL Globulin (1.3-4.6) g/dL Procalcitonin (0-0.5) ng/mL TSH (0.27-4.20) uIU/ mL Urine Color (Yellow) Urine Appearance (CLEAR) Urine pH (5-7) Ur Specific Gravit y (1.005-1.030) Urine Protein (Negative) Urine Glucose (UA) (Normal) Urine Ketones (Negative) Urine Blood (Negative) Urine Nitrate (Negative) Urine Bilirubin (Negative) Urine Urobilinogen (Negative) mg/dL Ur Leukocyte Aileen ase (Negative) Urine RBC (0-2) /hpf Urine WBC (0-5) /hpf Ur Squamous Epith Cells (0-5) /hpf Amorphous Sediment Urine Bacteria (NONE) /hpf Urine Opiates Scre en Negative (Negative) ng/mL Ur Barbiturates Sc reen Negative (Negative) ng/mL Ur Phencyclidine S crn Negative (Negative) ng/mL Ur Amphetamines Sc reen Negative (Negative) ng/mL U Benzodiazepines Scrn Positive H (Negative) ng/mL Urine Cocaine Scre en Negative (Negative) ng/mL U Marijuana (THC) Screen Negative (Negative) ng/mL SARS-CoV-2 Ag (Rap id) (Negative) 03/11/20 03/11/20 03/11/20 Range/Units 17:58 17:58 18:22 WBC (4.0-10.0) 10^3/ uL RBC (4.1-5.3) 10^6/u L Hgb (11.5-15.3) g/dL Hct (37.0-47.0) % MCV (81-99) fL MCH (28.0-34.0) pg MCHC (30.0-36.0) g/dL RDW (12.1-15.1) % Plt Count (130-400) 10^3/c mm MPV (7.4-10.4) fL Neut % (Auto) % Lymph % (Auto) % [place] % (Auto) % Eos % (Auto) % Baso % (Auto) % Neut # (Auto) (1.8-7.7) 10^3/u L Lymph # (Auto) (0.8-4.8) 10^3/u L [place] # (Auto) (0.2-0.9) 10^3/u L Eos # (Auto) (0.0-0.8) 10^3/u L Baso # (Auto) (0.0-0.1) 10^3/u L Nucleated RBC % (a uto) % Nucleated RBCs # /100WBC D-Dimer (0-0.59) ug/mIFE U Sodium (136-145) mmol/L Potassium (3.5-5.1) mmol/L Chloride (98-107) mmol/L Carbon Dioxide (22-29) mmol/L Anion Gap (5-19) BUN (8-23) mg/dL Creatinine (0.5-0.9) mg/dL GFR Calculation Glucose (65-115) mg/dL Calculated Osmolal ity (285-295) mOsm/k g Lactic Acid (0.5-2.2) mmol/L Calcium (8.5-10.5) mg/dL Magnesium (1.7-2.3) mg/dL Ferritin 134 (15-150) ng/mL Total Bilirubin (0.15-1.2) mg/dL AST (0-32) U/L ALT (0-33) U/L Alkaline Phosphata se (35-105) IU/L Troponin T Baselin e (0-10) ng/L Troponin T 120 Min hoopa (0-10) ng/L Delta Troponin T (0-10) ABS# Troponin T Hi Sens 6Hr (0-10) ng/L Troponin T Hi Sens 6Hr Delta (0-12) ng/L Total Protein (6.6-8.7) g/dL Albumin (3.5-5.2) g/dL Globulin (1.3-4.6) g/dL Procalcitonin 0.09 (0-0.5) ng/mL TSH 0.95 (0.27-4.20) uIU/ mL Urine Color (Yellow) Urine Appearance (CLEAR) Urine pH (5-7) Ur Specific Gravit y (1.005-1.030) Urine Protein (Negative) Urine Glucose (UA) (Normal) Urine Ketones (Negative) Urine Blood (Negative) Urine Nitrate (Negative) Urine Bilirubin (Negative) Urine Urobilinogen (Negative) mg/dL Ur Leukocyte Aileen ase (Negative) Urine RBC (0-2) /hpf Urine WBC (0-5) /hpf Ur Squamous Epith Cells (0-5) /hpf Amorphous Sediment Urine Bacteria (NONE) /hpf Urine Opiates Scre en (Negative) ng/mL Ur Barbiturates Sc reen (Negative) ng/mL Ur Phencyclidine S crn (Negative) ng/mL Ur Amphetamines Sc reen (Negative) ng/mL U Benzodiazepines Scrn (Negative) ng/mL Urine Cocaine Scre en (Negative) ng/mL U Marijuana (THC) Screen (Negative) ng/mL SARS-CoV-2 Ag (Rap id) Positive H (Negative) 03/11/20 Range/Units 22:05 WBC (4.0-10.0) 10^3/ uL RBC (4.1-5.3) 10^6/u L Hgb (11.5-15.3) g/dL Hct (37.0-47.0) % MCV (81-99) fL MCH (28.0-34.0) pg MCHC (30.0-36.0) g/dL RDW (12.1-15.1) % Plt Count (130-400) 10^3/c mm MPV (7.4-10.4) fL Neut % (Auto) % Lymph % (Auto) % [place] % (Auto) % Eos % (Auto) % Baso % (Auto) % Neut # (Auto) (1.8-7.7) 10^3/u L Lymph # (Auto) (0.8-4.8) 10^3/u L [place] # (Auto) (0.2-0.9) 10^3/u L Eos # (Auto) (0.0-0.8) 10^3/u L Baso # (Auto) (0.0-0.1) 10^3/u L Nucleated RBC % (a uto) % Nucleated RBCs # /100WBC D-Dimer (0-0.59) ug/mIFE U Sodium (136-145) mmol/L Potassium (3.5-5.1) mmol/L Chloride (98-107) mmol/L Carbon Dioxide (22-29) mmol/L Anion Gap (5-19) BUN (8-23) mg/dL Creatinine (0.5-0.9) mg/dL GFR Calculation Glucose (65-115) mg/dL Calculated Osmolal ity (285-295) mOsm/k g Lactic Acid (0.5-2.2) mmol/L Calcium (8.5-10.5) mg/dL Magnesium (1.7-2.3) mg/dL Ferritin (15-150) ng/mL Total Bilirubin (0.15-1.2) mg/dL AST (0-32) U/L ALT (0-33) U/L Alkaline Phosphata se (35-105) IU/L Troponin T Baselin e (0-10) ng/L Troponin T 120 Min hoopa (0-10) ng/L Delta Troponin T (0-10) ABS# Troponin T Hi Sens 6Hr 23.90 H (0-10) ng/L Troponin T Hi Sens 6Hr Delta 4.90 (0-12) ng/L Total Protein (6.6-8.7) g/dL Albumin (3.5-5.2) g/dL Globulin (1.3-4.6) g/dL Procalcitonin (0-0.5) ng/mL TSH (0.27-4.20) uIU/ mL Urine Color (Yellow) Urine Appearance (CLEAR) Urine pH (5-7) Ur Specific Gravit y (1.005-1.030) Urine Protein (Negative) Urine Glucose (UA) (Normal) Urine Ketones (Negative) Urine Blood (Negative) Urine Nitrate (Negative) Urine Bilirubin (Negative) Urine Urobilinogen (Negative) mg/dL Ur Leukocyte Aileen ase (Negative) Urine RBC (0-2) /hpf Urine WBC (0-5) /hpf Ur Squamous Epith Cells (0-5) /hpf Amorphous Sediment Urine Bacteria (NONE) /hpf Urine Opiates Scre en (Negative) ng/mL Ur Barbiturates Sc reen (Negative) ng/mL Ur Phencyclidine S crn (Negative) ng/mL Ur Amphetamines Sc reen (Negative) ng/mL U Benzodiazepines Scrn (Negative) ng/mL Urine Cocaine Scre en (Negative) ng/mL U Marijuana (THC) Screen (Negative) ng/mL SARS-CoV-2 Ag (Rap id) (Negative) Imaging Data^: CXR: Radiologist's impression: [place] [address] XRay Report Signed Patient: Andree Moe Unit #: [id number] : 1935 Acct#:OV [id number] Age/Sex: 85 / F ADM Date: 03/11/20 Loc: ER Room/Bed: Attending Dr: Ordering Provider/Ordering MD: Coral Hoffman Date of Service: 03/11/20 Procedure(s): XR chest 1V portable [id number] Accession Number(s): [id number] Report Number: [id number] PROCEDURE INFORMATION: Exam: XR Chest, 1 View Exam date and time: 03/11/2020 4:01 PM Age: 85 years old Clinical indication: Other: Weakness, AMS; Prior surgery; Surgery type: Mastectomy; Additional info: AMS, weakness TECHNIQUE: Imaging protocol: XR of the chest Views: 1 view. COMPARISON: CR XR chest 1V portable [id number] 11/27/2019 12:47 PM FINDINGS: Lungs: Skin fold superimposed over lateral aspect of left lung. No acute infiltrate evident. Pleural space: Unremarkable. No pleural effusion. No pneumothorax. Heart/Mediastinum: Benign calcified subcarinal lymph nodes, unchanged. Vasculature: Calcified ectatic aorta, chronic. Bones/joints: Unremarkable. XR/XR chest 1V portable [id number] IMPRESSION: No acute process evident. Dictated By: Angel Potts MD Signed By: Angel Potts MD Signed Date/Time: 03/11/201637 DD/ 163 EKG Data^: EKG 1: EKG interpretation date: 03/11/20 EKG interpretation time: 15:40 Interpretation: Sinus rhythm Rate 78 No acute changes when compared to EKG performed on 11/2019 Discharge Plan Discharge Prescriptions: No Action atorvastatin 10 mg tablet 10 mg PO BEDTIME RF: 0 lorazepam 0.5 mg tablet See Rx Instructions .ROUTE .COMPLEX PRN (Reason: Anxiety) RF: 0 metoprolol succinate 25 mg tablet extended release 24 hr 25 mg PO DAILY RF: 0 fluticasone propionate [Flonase Allergy Relief] 50 mcg/actuation spray,suspension 2 spray INTRANASAL DAILY RF: 0 Tylenol 325 mg Tablet 650 mg PO QID PRN (Reason: Pain) RF: 0 Aricept 10 mg Tablet 10 mg PO DAILY RF: 0 Milk of Magnesia 400 mg/5 mL Suspension 30 ml PO DAILY PRN (Reason: Constipation) RF: 0 bisacodyl 10 mg Suppository 10 mg KS DAILY PRN (Reason: Constipation) RF: 0 Fleet Enema 19-7 gram/118 mL Enema 118 ml KS DAILY PRN (Reason: Constipation) RF: 0 Colace 100 mg Capsule 100 mg PO BID RF: 0 Culturelle 10 billion cell Capsule 1 cap PO DAILY PRN (Reason: unknown) RF: 0 Ex-Lax Chocolate 1 tab PO DAILY PRN (Reason: Constipation) RF: 0 Sign Out Sign Out Data: Patient Sign Out occurred on 03/11/20 at 17:05. Patient's care was discussed, and care was transferred from to LYNN Kirk. Coding Level of Care Code ED Public Message Service Supervisor for Chg Fwd Exam Comprehensive Documented by User: Nirmala Fischer 03/11/20 18:45 HPI - Altered Mental Status General: Chief Complaint: Fall Stated Complaint: GENERALIZED WEAKNESS Time Seen by Provider: 03/11/20 15:33 PFSH ED PFSH: Medical History (Updated 03/11/20 @ 19:02 by Ariel Owens MD) Constipation Dementia Hyperlipidemia Hypertension Family History (Updated 03/11/20 @ 18:54 by Ariel Owens MD) Other Dementia Social History (Updated 03/11/20 @ 18:54 by Ariel Owens MD) Smoking and tobacco status: former smoker Alcohol intake: never Course Vital Signs: Vital signs: Vital Signs Temperature 100.4 F H 03/11/20 15:31 Pulse Rate 87 03/11/20 18:31 Respiratory Rate 20 H 03/11/20 18:31 Blood Pressure 207/119 03/11/20 18:31 Pulse Oximetry 94 03/11/20 17:07 MDM - Altered Mental Status MDM Narrative: Medical decision making narrative: Case inherited by me from the midlevel providers. Patient is believed to be at her baseline mental function with dementia but still is incredibly weak. She is requiring 2 nurse assist just to get to a bedside commode and normally she ambulates. Fever has resolved on its own. Patient denies headache or neck pain. This time though I do believe the patient will need to come to the hospital for generalized weakness. The case was reviewed with Dr. Owens who is agreeable to admit. He would like a COVID test sent on the patient. Lab Data: Labs: Lab Results 03/11/20 03/11/20 03/11/20 Range/Units 16:05 16:05 16:05 WBC 6.5 (4.0-10.0) 10^3/ uL RBC 4.66 (4.1-5.3) 10^6/u L Hgb 14.4 (11.5-15.3) g/dL Hct 43.5 (37.0-47.0) % MCV 93.3 (81-99) fL MCH 30.9 (28.0-34.0) pg MCHC 33.1 (30.0-36.0) g/dL RDW 12.7 (12.1-15.1) % Plt Count 182 (130-400) 10^3/c mm MPV 10.1 (7.4-10.4) fL Neut % (Auto) 80.1 % Lymph % (Auto) 6.6 % [place] % (Auto) 12.4 % Eos % (Auto) 0.0 % Baso % (Auto) 0.3 % Neut # (Auto) 5.21 (1.8-7.7) 10^3/u L Lymph # (Auto) 0.4 L (0.8-4.8) 10^3/u L [place] # (Auto) 0.8 (0.2-0.9) 10^3/u L Eos # (Auto) 0.0 (0.0-0.8) 10^3/u L Baso # (Auto) 0.0 (0.0-0.1) 10^3/u L Nucleated RBC % (a uto) 0 % Nucleated RBCs # 0.0 /100WBC D-Dimer (0-0.59) ug/mIFE U Sodium 136 (136-145) mmol/L Potassium 3.4 L (3.5-5.1) mmol/L Chloride 99 (98-107) mmol/L Carbon Dioxide 26 (22-29) mmol/L Anion Gap 14.4 (5-19) BUN 10 (8-23) mg/dL Creatinine 0.8 (0.5-0.9) mg/dL GFR Calculation Not Reportable Glucose 102 (65-115) mg/dL Calculated Osmolal ity 278 L (285-295) mOsm/k g Lactic Acid 0.9 (0.5-2.2) mmol/L Calcium 8.6 (8.5-10.5) mg/dL Magnesium (1.7-2.3) mg/dL Ferritin (15-150) ng/mL Total Bilirubin 0.4 (0.15-1.2) mg/dL AST 32 (0-32) U/L ALT 16 (0-33) U/L Alkaline Phosphata se 82 (35-105) IU/L Troponin T Baselin e (0-10) ng/L Troponin T 120 Min hoopa (0-10) ng/L Delta Troponin T (0-10) ABS# Troponin T Hi Sens 6Hr (0-10) ng/L Troponin T Hi Sens 6Hr Delta (0-12) ng/L Total Protein 6.2 L (6.6-8.7) g/dL Albumin 4.1 (3.5-5.2) g/dL Globulin 2.1 (1.3-4.6) g/dL Procalcitonin (0-0.5) ng/mL TSH (0.27-4.20) uIU/ mL Urine Color (Yellow) Urine Appearance (CLEAR) Urine pH (5-7) Ur Specific Gravit y (1.005-1.030) Urine Protein (Negative) Urine Glucose (UA) (Normal) Urine Ketones (Negative) Urine Blood (Negative) Urine Nitrate (Negative) Urine Bilirubin (Negative) Urine Urobilinogen (Negative) mg/dL Ur Leukocyte Aileen ase (Negative) Urine RBC (0-2) /hpf Urine WBC (0-5) /hpf Ur Squamous Epith Cells (0-5) /hpf Amorphous Sediment Urine Bacteria (NONE) /hpf Urine Opiates Scre en (Negative) ng/mL Ur Barbiturates Sc reen (Negative) ng/mL Ur Phencyclidine S crn (Negative) ng/mL Ur Amphetamines Sc reen (Negative) ng/mL U Benzodiazepines Scrn (Negative) ng/mL Urine Cocaine Scre en (Negative) ng/mL U Marijuana (THC) Screen (Negative) ng/mL SARS-CoV-2 Ag (Rap id) (Negative) 03/11/20 03/11/20 03/11/20 Range/Units 16:05 16:05 16:23 WBC (4.0-10.0) 10^3/ uL RBC (4.1-5.3) 10^6/u L Hgb (11.5-15.3) g/dL Hct (37.0-47.0) % MCV (81-99) fL MCH (28.0-34.0) pg MCHC (30.0-36.0) g/dL RDW (12.1-15.1) % Plt Count (130-400) 10^3/c mm MPV (7.4-10.4) fL Neut % (Auto) % Lymph % (Auto) % [place] % (Auto) % Eos % (Auto) % Baso % (Auto) % Neut # (Auto) (1.8-7.7) 10^3/u L Lymph # (Auto) (0.8-4.8) 10^3/u L [place] # (Auto) (0.2-0.9) 10^3/u L Eos # (Auto) (0.0-0.8) 10^3/u L Baso # (Auto) (0.0-0.1) 10^3/u L Nucleated RBC % (a uto) % Nucleated RBCs # /100WBC D-Dimer 0.57 (0-0.59) ug/mIFE U Sodium (136-145) mmol/L Potassium (3.5-5.1) mmol/L Chloride (98-107) mmol/L Carbon Dioxide (22-29) mmol/L Anion Gap (5-19) BUN (8-23) mg/dL Creatinine (0.5-0.9) mg/dL GFR Calculation Glucose (65-115) mg/dL Calculated Osmolal ity (285-295) mOsm/k g Lactic Acid (0.5-2.2) mmol/L Calcium (8.5-10.5) mg/dL Magnesium (1.7-2.3) mg/dL Ferritin (15-150) ng/mL Total Bilirubin (0.15-1.2) mg/dL AST (0-32) U/L ALT (0-33) U/L Alkaline Phosphata se (35-105) IU/L Troponin T Baselin e 19 H (0-10) ng/L Troponin T 120 Min hoopa (0-10) ng/L Delta Troponin T (0-10) ABS# Troponin T Hi Sens 6Hr (0-10) ng/L Troponin T Hi Sens 6Hr Delta (0-12) ng/L Total Protein (6.6-8.7) g/dL Albumin (3.5-5.2) g/dL Globulin (1.3-4.6) g/dL Procalcitonin (0-0.5) ng/mL TSH (0.27-4.20) uIU/ mL Urine Color Yellow (Yellow) Urine Appearance Clear (CLEAR) Urine pH 6.5 (5-7) Ur Specific Gravit y 1.015 (1.005-1.030) Urine Protein 1+ H (Negative) Urine Glucose (UA) Norm (Normal) Urine Ketones Negative (Negative) Urine Blood 3+ H (Negative) Urine Nitrate Negative (Negative) Urine Bilirubin Neg (Negative) Urine Urobilinogen Norm (Negative) mg/dL Ur Leukocyte Aileen ase Negative (Negative) Urine RBC 0-4 H (0-2) /hpf Urine WBC None (0-5) /hpf Ur Squamous Epith Cells 0-4 H (0-5) /hpf Amorphous Sediment Not Reportable Urine Bacteria Trace (NONE) /hpf Urine Opiates Scre en (Negative) ng/mL Ur Barbiturates Sc reen (Negative) ng/mL Ur Phencyclidine S crn (Negative) ng/mL Ur Amphetamines Sc reen (Negative) ng/mL U Benzodiazepines Scrn (Negative) ng/mL Urine Cocaine Scre en (Negative) ng/mL U Marijuana (THC) Screen (Negative) ng/mL SARS-CoV-2 Ag (Rap id) (Negative) 03/11/20 03/11/20 03/11/20 Range/Units 16:23 16:41 17:58 WBC (4.0-10.0) 10^3/ uL RBC (4.1-5.3) 10^6/u L Hgb (11.5-15.3) g/dL Hct (37.0-47.0) % MCV (81-99) fL MCH (28.0-34.0) pg MCHC (30.0-36.0) g/dL RDW (12.1-15.1) % Plt Count (130-400) 10^3/c mm MPV (7.4-10.4) fL Neut % (Auto) % Lymph % (Auto) % [place] % (Auto) % Eos % (Auto) % Baso % (Auto) % Neut # (Auto) (1.8-7.7) 10^3/u L Lymph # (Auto) (0.8-4.8) 10^3/u L [place] # (Auto) (0.2-0.9) 10^3/u L Eos # (Auto) (0.0-0.8) 10^3/u L Baso # (Auto) (0.0-0.1) 10^3/u L Nucleated RBC % (a uto) % Nucleated RBCs # /100WBC D-Dimer (0-0.59) ug/mIFE U Sodium (136-145) mmol/L Potassium (3.5-5.1) mmol/L Chloride (98-107) mmol/L Carbon Dioxide (22-29) mmol/L Anion Gap (5-19) BUN (8-23) mg/dL Creatinine (0.5-0.9) mg/dL GFR Calculation Glucose (65-115) mg/dL Calculated Osmolal ity (285-295) mOsm/k g Lactic Acid (0.5-2.2) mmol/L Calcium (8.5-10.5) mg/dL Magnesium 1.8 (1.7-2.3) mg/dL Ferritin (15-150) ng/mL Total Bilirubin (0.15-1.2) mg/dL AST (0-32) U/L ALT (0-33) U/L Alkaline Phosphata se (35-105) IU/L Troponin T Baselin e (0-10) ng/L Troponin T 120 Min hoopa 19.68 H (0-10) ng/L Delta Troponin T 0.68 (0-10) ABS# Troponin T Hi Sens 6Hr (0-10) ng/L Troponin T Hi Sens 6Hr Delta (0-12) ng/L Total Protein (6.6-8.7) g/dL Albumin (3.5-5.2) g/dL Globulin (1.3-4.6) g/dL Procalcitonin (0-0.5) ng/mL TSH (0.27-4.20) uIU/ mL Urine Color (Yellow) Urine Appearance (CLEAR) Urine pH (5-7) Ur Specific Gravit y (1.005-1.030) Urine Protein (Negative) Urine Glucose (UA) (Normal) Urine Ketones (Negative) Urine Blood (Negative) Urine Nitrate (Negative) Urine Bilirubin (Negative) Urine Urobilinogen (Negative) mg/dL Ur Leukocyte Aileen ase (Negative) Urine RBC (0-2) /hpf Urine WBC (0-5) /hpf Ur Squamous Epith Cells (0-5) /hpf Amorphous Sediment Urine Bacteria (NONE) /hpf Urine Opiates Scre en Negative (Negative) ng/mL Ur Barbiturates Sc reen Negative (Negative) ng/mL Ur Phencyclidine S crn Negative (Negative) ng/mL Ur Amphetamines Sc reen Negative (Negative) ng/mL U Benzodiazepines Scrn Positive H (Negative) ng/mL Urine Cocaine Scre en Negative (Negative) ng/mL U Marijuana (THC) Screen Negative (Negative) ng/mL SARS-CoV-2 Ag (Rap id) (Negative) 03/11/20 03/11/20 03/11/20 Range/Units 17:58 17:58 18:22 WBC (4.0-10.0) 10^3/ uL RBC (4.1-5.3) 10^6/u L Hgb (11.5-15.3) g/dL Hct (37.0-47.0) % MCV (81-99) fL MCH (28.0-34.0) pg MCHC (30.0-36.0) g/dL RDW (12.1-15.1) % Plt Count (130-400) 10^3/c mm MPV (7.4-10.4) fL Neut % (Auto) % Lymph % (Auto) % [place] % (Auto) % Eos % (Auto) % Baso % (Auto) % Neut # (Auto) (1.8-7.7) 10^3/u L Lymph # (Auto) (0.8-4.8) 10^3/u L [place] # (Auto) (0.2-0.9) 10^3/u L Eos # (Auto) (0.0-0.8) 10^3/u L Baso # (Auto) (0.0-0.1) 10^3/u L Nucleated RBC % (a uto) % Nucleated RBCs # /100WBC D-Dimer (0-0.59) ug/mIFE U Sodium (136-145) mmol/L Potassium (3.5-5.1) mmol/L Chloride (98-107) mmol/L Carbon Dioxide (22-29) mmol/L Anion Gap (5-19) BUN (8-23) mg/dL Creatinine (0.5-0.9) mg/dL GFR Calculation Glucose (65-115) mg/dL Calculated Osmolal ity (285-295) mOsm/k g Lactic Acid (0.5-2.2) mmol/L Calcium (8.5-10.5) mg/dL Magnesium (1.7-2.3) mg/dL Ferritin 134 (15-150) ng/mL Total Bilirubin (0.15-1.2) mg/dL AST (0-32) U/L ALT (0-33) U/L Alkaline Phosphata se (35-105) IU/L Troponin T Baselin e (0-10) ng/L Troponin T 120 Min hoopa (0-10) ng/L Delta Troponin T (0-10) ABS# Troponin T Hi Sens 6Hr (0-10) ng/L Troponin T Hi Sens 6Hr Delta (0-12) ng/L Total Protein (6.6-8.7) g/dL Albumin (3.5-5.2) g/dL Globulin (1.3-4.6) g/dL Procalcitonin 0.09 (0-0.5) ng/mL TSH 0.95 (0.27-4.20) uIU/ mL Urine Color (Yellow) Urine Appearance (CLEAR) Urine pH (5-7) Ur Specific Gravit y (1.005-1.030) Urine Protein (Negative) Urine Glucose (UA) (Normal) Urine Ketones (Negative) Urine Blood (Negative) Urine Nitrate (Negative) Urine Bilirubin (Negative) Urine Urobilinogen (Negative) mg/dL Ur Leukocyte Aileen ase (Negative) Urine RBC (0-2) /hpf Urine WBC (0-5) /hpf Ur Squamous Epith Cells (0-5) /hpf Amorphous Sediment Urine Bacteria (NONE) /hpf Urine Opiates Scre en (Negative) ng/mL Ur Barbiturates Sc reen (Negative) ng/mL Ur Phencyclidine S crn (Negative) ng/mL Ur Amphetamines Sc reen (Negative) ng/mL U Benzodiazepines Scrn (Negative) ng/mL Urine Cocaine Scre en (Negative) ng/mL U Marijuana (THC) Screen (Negative) ng/mL SARS-CoV-2 Ag (Rap id) Positive H (Negative) 03/11/20 Range/Units 22:05 WBC (4.0-10.0) 10^3/ uL RBC (4.1-5.3) 10^6/u L Hgb (11.5-15.3) g/dL Hct (37.0-47.0) % MCV (81-99) fL MCH (28.0-34.0) pg MCHC (30.0-36.0) g/dL RDW (12.1-15.1) % Plt Count (130-400) 10^3/c mm MPV (7.4-10.4) fL Neut % (Auto) % Lymph % (Auto) % [place] % (Auto) % Eos % (Auto) % Baso % (Auto) % Neut # (Auto) (1.8-7.7) 10^3/u L Lymph # (Auto) (0.8-4.8) 10^3/u L [place] # (Auto) (0.2-0.9) 10^3/u L Eos # (Auto) (0.0-0.8) 10^3/u L Baso # (Auto) (0.0-0.1) 10^3/u L Nucleated RBC % (a uto) % Nucleated RBCs # /100WBC D-Dimer (0-0.59) ug/mIFE U Sodium (136-145) mmol/L Potassium (3.5-5.1) mmol/L Chloride (98-107) mmol/L Carbon Dioxide (22-29) mmol/L Anion Gap (5-19) BUN (8-23) mg/dL Creatinine (0.5-0.9) mg/dL GFR Calculation Glucose (65-115) mg/dL Calculated Osmolal ity (285-295) mOsm/k g Lactic Acid (0.5-2.2) mmol/L Calcium (8.5-10.5) mg/dL Magnesium (1.7-2.3) mg/dL Ferritin (15-150) ng/mL Total Bilirubin (0.15-1.2) mg/dL AST (0-32) U/L ALT (0-33) U/L Alkaline Phosphata se (35-105) IU/L Troponin T Baselin e (0-10) ng/L Troponin T 120 Min hoopa (0-10) ng/L Delta Troponin T (0-10) ABS# Troponin T Hi Sens 6Hr 23.90 H (0-10) ng/L Troponin T Hi Sens 6Hr Delta 4.90 (0-12) ng/L Total Protein (6.6-8.7) g/dL Albumin (3.5-5.2) g/dL Globulin (1.3-4.6) g/dL Procalcitonin (0-0.5) ng/mL TSH (0.27-4.20) uIU/ mL Urine Color (Yellow) Urine Appearance (CLEAR) Urine pH (5-7) Ur Specific Gravit y (1.005-1.030) Urine Protein (Negative) Urine Glucose (UA) (Normal) Urine Ketones (Negative) Urine Blood (Negative) Urine Nitrate (Negative) Urine Bilirubin (Negative) Urine Urobilinogen (Negative) mg/dL Ur Leukocyte Aileen ase (Negative) Urine RBC (0-2) /hpf Urine WBC (0-5) /hpf Ur Squamous Epith Cells (0-5) /hpf Amorphous Sediment Urine Bacteria (NONE) /hpf Urine Opiates Scre en (Negative) ng/mL Ur Barbiturates Sc reen (Negative) ng/mL Ur Phencyclidine S crn (Negative) ng/mL Ur Amphetamines Sc reen (Negative) ng/mL U Benzodiazepines Scrn (Negative) ng/mL Urine Cocaine Scre en (Negative) ng/mL U Marijuana (THC) Screen (Negative) ng/mL SARS-CoV-2 Ag (Rap id) (Negative) Discharge Plan Discharge Prescriptions: No Action atorvastatin 10 mg tablet 10 mg PO BEDTIME RF: 0 lorazepam 0.5 mg tablet See Rx Instructions .ROUTE .COMPLEX PRN (Reason: Anxiety) RF: 0 metoprolol succinate 25 mg tablet extended release 24 hr 25 mg PO DAILY RF: 0 fluticasone propionate [Flonase Allergy Relief] 50 mcg/actuation spray,suspension 2 spray INTRANASAL DAILY RF: 0 Tylenol 325 mg Tablet 650 mg PO QID PRN (Reason: Pain) RF: 0 Aricept 10 mg Tablet 10 mg PO DAILY RF: 0 Milk of Magnesia 400 mg/5 mL Suspension 30 ml PO DAILY PRN (Reason: Constipation) RF: 0 bisacodyl 10 mg Suppository 10 mg KS DAILY PRN (Reason: Constipation) RF: 0 Fleet Enema 19-7 gram/118 mL Enema 118 ml KS DAILY PRN (Reason: Constipation) RF: 0 Colace 100 mg Capsule 100 mg PO BID RF: 0 Culturelle 10 billion cell Capsule 1 cap PO DAILY PRN (Reason: unknown) RF: 0 Ex-Lax Chocolate 1 tab PO DAILY PRN (Reason: Constipation) RF: 0 Sign Out Sign Out Data: Patient Sign Out occurred on 03/11/20 at 17:05. Patient's care was discussed, and care was transferred from to LYNN Kirk. Coding Level of Care Code ED Public Message Service Supervisor for Chg Fwd Exam Comprehensive Documented by User: LYNN Kirk 03/12/20 00:30 HPI - Altered Mental Status General: Chief Complaint: Fall Stated Complaint: GENERALIZED WEAKNESS Time Seen by Provider: 03/11/20 15:33 PFSH ED PFSH: Medical History (Updated 03/11/20 @ 19:02 by Ariel Owens MD) Constipation Dementia Hyperlipidemia Hypertension Family History (Updated 03/11/20 @ 18:54 by Ariel Owens MD) Other Dementia Social History (Updated 03/11/20 @ 18:54 by Ariel Owens MD) Smoking and tobacco status: former smoker Alcohol intake: never Course Vital Signs: Vital signs: Vital Signs Temperature 100.4 F H 03/11/20 15:31 Pulse Rate 87 03/11/20 18:31 Respiratory Rate 20 H 03/11/20 18:31 Blood Pressure 207/119 03/11/20 18:31 Pulse Oximetry 94 03/11/20 17:07 MDM - Altered Mental Status Lab Data: Labs: Lab Results 03/11/20 03/11/20 03/11/20 Range/Units 16:05 16:05 16:05 WBC 6.5 (4.0-10.0) 10^3/ uL RBC 4.66 (4.1-5.3) 10^6/u L Hgb 14.4 (11.5-15.3) g/dL Hct 43.5 (37.0-47.0) % MCV 93.3 (81-99) fL MCH 30.9 (28.0-34.0) pg MCHC 33.1 (30.0-36.0) g/dL RDW 12.7 (12.1-15.1) % Plt Count 182 (130-400) 10^3/c mm MPV 10.1 (7.4-10.4) fL Neut % (Auto) 80.1 % Lymph % (Auto) 6.6 % [place] % (Auto) 12.4 % Eos % (Auto) 0.0 % Baso % (Auto) 0.3 % Neut # (Auto) 5.21 (1.8-7.7) 10^3/u L Lymph # (Auto) 0.4 L (0.8-4.8) 10^3/u L [place] # (Auto) 0.8 (0.2-0.9) 10^3/u L Eos # (Auto) 0.0 (0.0-0.8) 10^3/u L Baso # (Auto) 0.0 (0.0-0.1) 10^3/u L Nucleated RBC % (a uto) 0 % Nucleated RBCs # 0.0 /100WBC D-Dimer (0-0.59) ug/mIFE U Sodium 136 (136-145) mmol/L Potassium 3.4 L (3.5-5.1) mmol/L Chloride 99 (98-107) mmol/L Carbon Dioxide 26 (22-29) mmol/L Anion Gap 14.4 (5-19) BUN 10 (8-23) mg/dL Creatinine 0.8 (0.5-0.9) mg/dL GFR Calculation Not Reportable Glucose 102 (65-115) mg/dL Calculated Osmolal ity 278 L (285-295) mOsm/k g Lactic Acid 0.9 (0.5-2.2) mmol/L Calcium 8.6 (8.5-10.5) mg/dL Magnesium (1.7-2.3) mg/dL Ferritin (15-150) ng/mL Total Bilirubin 0.4 (0.15-1.2) mg/dL AST 32 (0-32) U/L ALT 16 (0-33) U/L Alkaline Phosphata se 82 (35-105) IU/L Troponin T Baselin e (0-10) ng/L Troponin T 120 Min hoopa (0-10) ng/L Delta Troponin T (0-10) ABS# Troponin T Hi Sens 6Hr (0-10) ng/L Troponin T Hi Sens 6Hr Delta (0-12) ng/L Total Protein 6.2 L (6.6-8.7) g/dL Albumin 4.1 (3.5-5.2) g/dL Globulin 2.1 (1.3-4.6) g/dL Procalcitonin (0-0.5) ng/mL TSH (0.27-4.20) uIU/ mL Urine Color (Yellow) Urine Appearance (CLEAR) Urine pH (5-7) Ur Specific Gravit y (1.005-1.030) Urine Protein (Negative) Urine Glucose (UA) (Normal) Urine Ketones (Negative) Urine Blood (Negative) Urine Nitrate (Negative) Urine Bilirubin (Negative) Urine Urobilinogen (Negative) mg/dL Ur Leukocyte Aileen ase (Negative) Urine RBC (0-2) /hpf Urine WBC (0-5) /hpf Ur Squamous Epith Cells (0-5) /hpf Amorphous Sediment Urine Bacteria (NONE) /hpf Urine Opiates Scre en (Negative) ng/mL Ur Barbiturates Sc reen (Negative) ng/mL Ur Phencyclidine S crn (Negative) ng/mL Ur Amphetamines Sc reen (Negative) ng/mL U Benzodiazepines Scrn (Negative) ng/mL Urine Cocaine Scre en (Negative) ng/mL U Marijuana (THC) Screen (Negative) ng/mL SARS-CoV-2 Ag (Rap id) (Negative) 03/11/20 03/11/20 03/11/20 Range/Units 16:05 16:05 16:23 WBC (4.0-10.0) 10^3/ uL RBC (4.1-5.3) 10^6/u L Hgb (11.5-15.3) g/dL Hct (37.0-47.0) % MCV (81-99) fL MCH (28.0-34.0) pg MCHC (30.0-36.0) g/dL RDW (12.1-15.1) % Plt Count (130-400) 10^3/c mm MPV (7.4-10.4) fL Neut % (Auto) % Lymph % (Auto) % [place] % (Auto) % Eos % (Auto) % Baso % (Auto) % Neut # (Auto) (1.8-7.7) 10^3/u L Lymph # (Auto) (0.8-4.8) 10^3/u L [place] # (Auto) (0.2-0.9) 10^3/u L Eos # (Auto) (0.0-0.8) 10^3/u L Baso # (Auto) (0.0-0.1) 10^3/u L Nucleated RBC % (a uto) % Nucleated RBCs # /100WBC D-Dimer 0.57 (0-0.59) ug/mIFE U Sodium (136-145) mmol/L Potassium (3.5-5.1) mmol/L Chloride (98-107) mmol/L Carbon Dioxide (22-29) mmol/L Anion Gap (5-19) BUN (8-23) mg/dL Creatinine (0.5-0.9) mg/dL GFR Calculation Glucose (65-115) mg/dL Calculated Osmolal ity (285-295) mOsm/k g Lactic Acid (0.5-2.2) mmol/L Calcium (8.5-10.5) mg/dL Magnesium (1.7-2.3) mg/dL Ferritin (15-150) ng/mL Total Bilirubin (0.15-1.2) mg/dL AST (0-32) U/L ALT (0-33) U/L Alkaline Phosphata se (35-105) IU/L Troponin T Baselin e 19 H (0-10) ng/L Troponin T 120 Min hoopa (0-10) ng/L Delta Troponin T (0-10) ABS# Troponin T Hi Sens 6Hr (0-10) ng/L Troponin T Hi Sens 6Hr Delta (0-12) ng/L Total Protein (6.6-8.7) g/dL Albumin (3.5-5.2) g/dL Globulin (1.3-4.6) g/dL Procalcitonin (0-0.5) ng/mL TSH (0.27-4.20) uIU/ mL Urine Color Yellow (Yellow) Urine Appearance Clear (CLEAR) Urine pH 6.5 (5-7) Ur Specific Gravit y 1.015 (1.005-1.030) Urine Protein 1+ H (Negative) Urine Glucose (UA) Norm (Normal) Urine Ketones Negative (Negative) Urine Blood 3+ H (Negative) Urine Nitrate Negative (Negative) Urine Bilirubin Neg (Negative) Urine Urobilinogen Norm (Negative) mg/dL Ur Leukocyte Aileen ase Negative (Negative) Urine RBC 0-4 H (0-2) /hpf Urine WBC None (0-5) /hpf Ur Squamous Epith Cells 0-4 H (0-5) /hpf Amorphous Sediment Not Reportable Urine Bacteria Trace (NONE) /hpf Urine Opiates Scre en (Negative) ng/mL Ur Barbiturates Sc reen (Negative) ng/mL Ur Phencyclidine S crn (Negative) ng/mL Ur Amphetamines Sc reen (Negative) ng/mL U Benzodiazepines Scrn (Negative) ng/mL Urine Cocaine Scre en (Negative) ng/mL U Marijuana (THC) Screen (Negative) ng/mL SARS-CoV-2 Ag (Rap id) (Negative) 03/11/20 03/11/20 03/11/20 Range/Units 16:23 16:41 17:58 WBC (4.0-10.0) 10^3/ uL RBC (4.1-5.3) 10^6/u L Hgb (11.5-15.3) g/dL Hct (37.0-47.0) % MCV (81-99) fL MCH (28.0-34.0) pg MCHC (30.0-36.0) g/dL RDW (12.1-15.1) % Plt Count (130-400) 10^3/c mm MPV (7.4-10.4) fL Neut % (Auto) % Lymph % (Auto) % [place] % (Auto) % Eos % (Auto) % Baso % (Auto) % Neut # (Auto) (1.8-7.7) 10^3/u L Lymph # (Auto) (0.8-4.8) 10^3/u L [place] # (Auto) (0.2-0.9) 10^3/u L Eos # (Auto) (0.0-0.8) 10^3/u L Baso # (Auto) (0.0-0.1) 10^3/u L Nucleated RBC % (a uto) % Nucleated RBCs # /100WBC D-Dimer (0-0.59) ug/mIFE U Sodium (136-145) mmol/L Potassium (3.5-5.1) mmol/L Chloride (98-107) mmol/L Carbon Dioxide (22-29) mmol/L Anion Gap (5-19) BUN (8-23) mg/dL Creatinine (0.5-0.9) mg/dL GFR Calculation Glucose (65-115) mg/dL Calculated Osmolal ity (285-295) mOsm/k g Lactic Acid (0.5-2.2) mmol/L Calcium (8.5-10.5) mg/dL Magnesium 1.8 (1.7-2.3) mg/dL Ferritin (15-150) ng/mL Total Bilirubin (0.15-1.2) mg/dL AST (0-32) U/L ALT (0-33) U/L Alkaline Phosphata se (35-105) IU/L Troponin T Baselin e (0-10) ng/L Troponin T 120 Min hoopa 19.68 H (0-10) ng/L Delta Troponin T 0.68 (0-10) ABS# Troponin T Hi Sens 6Hr (0-10) ng/L Troponin T Hi Sens 6Hr Delta (0-12) ng/L Total Protein (6.6-8.7) g/dL Albumin (3.5-5.2) g/dL Globulin (1.3-4.6) g/dL Procalcitonin (0-0.5) ng/mL TSH (0.27-4.20) uIU/ mL Urine Color (Yellow) Urine Appearance (CLEAR) Urine pH (5-7) Ur Specific Gravit y (1.005-1.030) Urine Protein (Negative) Urine Glucose (UA) (Normal) Urine Ketones (Negative) Urine Blood (Negative) Urine Nitrate (Negative) Urine Bilirubin (Negative) Urine Urobilinogen (Negative) mg/dL Ur Leukocyte Aileen ase (Negative) Urine RBC (0-2) /hpf Urine WBC (0-5) /hpf Ur Squamous Epith Cells (0-5) /hpf Amorphous Sediment Urine Bacteria (NONE) /hpf Urine Opiates Scre en Negative (Negative) ng/mL Ur Barbiturates Sc reen Negative (Negative) ng/mL Ur Phencyclidine S crn Negative (Negative) ng/mL Ur Amphetamines Sc reen Negative (Negative) ng/mL U Benzodiazepines Scrn Positive H (Negative) ng/mL Urine Cocaine Scre en Negative (Negative) ng/mL U Marijuana (THC) Screen Negative (Negative) ng/mL SARS-CoV-2 Ag (Rap id) (Negative) 03/11/20 03/11/20 03/11/20 Range/Units 17:58 17:58 18:22 WBC (4.0-10.0) 10^3/ uL RBC (4.1-5.3) 10^6/u L Hgb (11.5-15.3) g/dL Hct (37.0-47.0) % MCV (81-99) fL MCH (28.0-34.0) pg MCHC (30.0-36.0) g/dL RDW (12.1-15.1) % Plt Count (130-400) 10^3/c mm MPV (7.4-10.4) fL Neut % (Auto) % Lymph % (Auto) % [place] % (Auto) % Eos % (Auto) % Baso % (Auto) % Neut # (Auto) (1.8-7.7) 10^3/u L Lymph # (Auto) (0.8-4.8) 10^3/u L [place] # (Auto) (0.2-0.9) 10^3/u L Eos # (Auto) (0.0-0.8) 10^3/u L Baso # (Auto) (0.0-0.1) 10^3/u L Nucleated RBC % (a uto) % Nucleated RBCs # /100WBC D-Dimer (0-0.59) ug/mIFE U Sodium (136-145) mmol/L Potassium (3.5-5.1) mmol/L Chloride (98-107) mmol/L Carbon Dioxide (22-29) mmol/L Anion Gap (5-19) BUN (8-23) mg/dL Creatinine (0.5-0.9) mg/dL GFR Calculation Glucose (65-115) mg/dL Calculated Osmolal ity (285-295) mOsm/k g Lactic Acid (0.5-2.2) mmol/L Calcium (8.5-10.5) mg/dL Magnesium (1.7-2.3) mg/dL Ferritin 134 (15-150) ng/mL Total Bilirubin (0.15-1.2) mg/dL AST (0-32) U/L ALT (0-33) U/L Alkaline Phosphata se (35-105) IU/L Troponin T Baselin e (0-10) ng/L Troponin T 120 Min hoopa (0-10) ng/L Delta Troponin T (0-10) ABS# Troponin T Hi Sens 6Hr (0-10) ng/L Troponin T Hi Sens 6Hr Delta (0-12) ng/L Total Protein (6.6-8.7) g/dL Albumin (3.5-5.2) g/dL Globulin (1.3-4.6) g/dL Procalcitonin 0.09 (0-0.5) ng/mL TSH 0.95 (0.27-4.20) uIU/ mL Urine Color (Yellow) Urine Appearance (CLEAR) Urine pH (5-7) Ur Specific Gravit y (1.005-1.030) Urine Protein (Negative) Urine Glucose (UA) (Normal) Urine Ketones (Negative) Urine Blood (Negative) Urine Nitrate (Negative) Urine Bilirubin (Negative) Urine Urobilinogen (Negative) mg/dL Ur Leukocyte Aileen ase (Negative) Urine RBC (0-2) /hpf Urine WBC (0-5) /hpf Ur Squamous Epith Cells (0-5) /hpf Amorphous Sediment Urine Bacteria (NONE) /hpf Urine Opiates Scre en (Negative) ng/mL Ur Barbiturates Sc reen (Negative) ng/mL Ur Phencyclidine S crn (Negative) ng/mL Ur Amphetamines Sc reen (Negative) ng/mL U Benzodiazepines Scrn (Negative) ng/mL Urine Cocaine Scre en (Negative) ng/mL U Marijuana (THC) Screen (Negative) ng/mL SARS-CoV-2 Ag (Rap id) Positive H (Negative) 03/11/20 Range/Units 22:05 WBC (4.0-10.0) 10^3/ uL RBC (4.1-5.3) 10^6/u L Hgb (11.5-15.3) g/dL Hct (37.0-47.0) % MCV (81-99) fL MCH (28.0-34.0) pg MCHC (30.0-36.0) g/dL RDW (12.1-15.1) % Plt Count (130-400) 10^3/c mm MPV (7.4-10.4) fL Neut % (Auto) % Lymph % (Auto) % [place] % (Auto) % Eos % (Auto) % Baso % (Auto) % Neut # (Auto) (1.8-7.7) 10^3/u L Lymph # (Auto) (0.8-4.8) 10^3/u L [place] # (Auto) (0.2-0.9) 10^3/u L Eos # (Auto) (0.0-0.8) 10^3/u L Baso # (Auto) (0.0-0.1) 10^3/u L Nucleated RBC % (a uto) % Nucleated RBCs # /100WBC D-Dimer (0-0.59) ug/mIFE U Sodium (136-145) mmol/L Potassium (3.5-5.1) mmol/L Chloride (98-107) mmol/L Carbon Dioxide (22-29) mmol/L Anion Gap (5-19) BUN (8-23) mg/dL Creatinine (0.5-0.9) mg/dL GFR Calculation Glucose (65-115) mg/dL Calculated Osmolal ity (285-295) mOsm/k g Lactic Acid (0.5-2.2) mmol/L Calcium (8.5-10.5) mg/dL Magnesium (1.7-2.3) mg/dL Ferritin (15-150) ng/mL Total Bilirubin (0.15-1.2) mg/dL AST (0-32) U/L ALT (0-33) U/L Alkaline Phosphata se (35-105) IU/L Troponin T Baselin e (0-10) ng/L Troponin T 120 Min hoopa (0-10) ng/L Delta Troponin T (0-10) ABS# Troponin T Hi Sens 6Hr 23.90 H (0-10) ng/L Troponin T Hi Sens 6Hr Delta 4.90 (0-12) ng/L Total Protein (6.6-8.7) g/dL Albumin (3.5-5.2) g/dL Globulin (1.3-4.6) g/dL Procalcitonin (0-0.5) ng/mL TSH (0.27-4.20) uIU/ mL Urine Color (Yellow) Urine Appearance (CLEAR) Urine pH (5-7) Ur Specific Gravit y (1.005-1.030) Urine Protein (Negative) Urine Glucose (UA) (Normal) Urine Ketones (Negative) Urine Blood (Negative) Urine Nitrate (Negative) Urine Bilirubin (Negative) Urine Urobilinogen (Negative) mg/dL Ur Leukocyte Aileen ase (Negative) Urine RBC (0-2) /hpf Urine WBC (0-5) /hpf Ur Squamous Epith Cells (0-5) /hpf Amorphous Sediment Urine Bacteria (NONE) /hpf Urine Opiates Scre en (Negative) ng/mL Ur Barbiturates Sc reen (Negative) ng/mL Ur Phencyclidine S crn (Negative) ng/mL Ur Amphetamines Sc reen (Negative) ng/mL U Benzodiazepines Scrn (Negative) ng/mL Urine Cocaine Scre en (Negative) ng/mL U Marijuana (THC) Screen (Negative) ng/mL SARS-CoV-2 Ag (Rap id) (Negative) Discharge Plan Discharge Prescriptions: No Action atorvastatin 10 mg tablet 10 mg PO BEDTIME RF: 0 lorazepam 0.5 mg tablet See Rx Instructions .ROUTE .COMPLEX PRN (Reason: Anxiety) RF: 0 metoprolol succinate 25 mg tablet extended release 24 hr 25 mg PO DAILY RF: 0 fluticasone propionate [Flonase Allergy Relief] 50 mcg/actuation spray,suspension 2 spray INTRANASAL DAILY RF: 0 Tylenol 325 mg Tablet 650 mg PO QID PRN (Reason: Pain) RF: 0 Aricept 10 mg Tablet 10 mg PO DAILY RF: 0 Milk of Magnesia 400 mg/5 mL Suspension 30 ml PO DAILY PRN (Reason: Constipation) RF: 0 bisacodyl 10 mg Suppository 10 mg KS DAILY PRN (Reason: Constipation) RF: 0 Fleet Enema 19-7 gram/118 mL Enema 118 ml KS DAILY PRN (Reason: Constipation) RF: 0 Colace 100 mg Capsule 100 mg PO BID RF: 0 Culturelle 10 billion cell Capsule 1 cap PO DAILY PRN (Reason: unknown) RF: 0 Ex-Lax Chocolate 1 tab PO DAILY PRN (Reason: Constipation) RF: 0 Sign Out Sign Out Data: Patient Sign Out occurred on 03/11/20 at 17:05. Patient's care was discussed, and care was transferred from to LYNN Kirk. Coding Level of Care Code ED Public Message Service Supervisor for Chg Fwd Exam Comprehensive
--- NOTE | 2020-03-11 15:52 | ECG_ITS ---
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 Measurements Intervals [place] Rate: 78 P: 75 [place]: 139 QRS: -61 QRSD: 97 T: 13 QT: 396 QTc: 452 Interpretive Statements SINUS RHYTHM INCOMPLETE RIGHT BUNDLE BRANCH BLOCK [90+ ms QRS DURATION, TERMINAL R IN V1/V2, 40+ ms S IN I/aVL/V4/V5/V6] LEFT ANTERIOR FASCICULAR BLOCK [QRS AXIS <= -45, QR IN I, RS IN II] NONSPECIFIC T-WAVE ABNORMALITY Compared to ECG 11/27/2019 15:43:56 Incomplete right bundle-branch block now present Left anterior fascicular block now present T-wave abnormality now present Left-axis deviation no longer present Myocardial infarct finding no longer present Electronically Signed On 03-11-2020 19:54:37 CDT by Carlos Mcbride M.D. [id number]
[2020-03-11 16:16] LABS: Basophils % 0.3 %; Hematocrit 43.5 % (37.0-47.0); Hemoglobin 14.4 g/dL (11.5-15.3); Lymphocytes # 0.4 10^3/uL (0.8-4.8); Lymphocytes % 6.6 %; Mean Corpuscular HGB Conc 33.1 g/dL (30.0-36.0); Mean Corpuscular Hemoglobin 30.9 pg (28.0-34.0); Mean Corpuscular Volume 93.3 fL (81-99); Mean Platelet Volume 10.1 fL (7.4-10.4); Monocytes # 0.8 10^3/uL (0.2-0.9); Monocytes % 12.4 %; Neutrophils # 5.21 10^3/uL (1.8-7.7); Neutrophils % 80.1 %; Nucleated Red Blood Cells % 0 %; Platelet Count 182 10^3/cmm (130-400); Red Blood Count 4.66 10^6/uL (4.1-5.3); Red Cell Distribution Width 12.7 % (12.1-15.1); White Blood Count 6.5 10^3/uL (4.0-10.0)
[2020-03-11 16:28] LABS: Alanine Aminotransferase 16 U/L (0-33); Albumin Level 4.1 g/dL (3.5-5.2); Alkaline Phosphatase 82 IU/L (35-105); Anion Gap 14.4 (5-19); Aspartate Amino Transferase 32 U/L (0-32); Blood Urea Nitrogen 10 mg/dL (8-23); Calcium 8.6 mg/dL (8.5-10.5); Carbon Dioxide 26 mmol/L (22-29); Chloride 99 mmol/L (98-107); Globulin 2.1 g/dL (1.3-4.6); Glucose 102 mg/dL (65-115); Osmolality Calculated 278 mOsm/kg (285-295); Potassium 3.4 mmol/L (3.5-5.1); Sodium 136 mmol/L (136-145); Total Bilirubin 0.4 mg/dL (0.15-1.2); Total Protein 6.2 g/dL (6.6-8.7)
[2020-03-11 16:32] LABS: Lactic Sepsis W/Reflex 0.9 mmol/L (0.5-2.2); Troponin(5th) Baseline 19 ng/L (0-10)
[2020-03-11 16:50] LABS: Add Urine Microscopic? YES; Amphetamines Screen Urine Negative (Negative); Barbiturates Screen Urine Negative (Negative); Benzodiazepines Screen Urine Positive (Negative); Bilirubin Urine Neg (Negative); Blood Urine 3+ (Negative); Cocaine Screen Urine Negative (Negative); Glucose Urine UA Norm (Normal); Ketones Urine Negative (Negative); Leukocyte Esterase Urine Negative (Negative); Nitrate Urine Negative (Negative); Opiate Screen Urine Negative (Negative); PCP Screen Urine Negative (Negative); Protein Urine 1+ (Negative); Specific Gravity, Urine 1.015 (1.005-1.030); THC Screen Urine Negative (Negative); Urine Appearance Clear (CLEAR); Urine Color Yellow (Yellow); Urobilinogen Urine Norm (Negative); pH Urine 6.5 (5-7)
[2020-03-11 17:01] LABS: RBC Urine 0-4 /hpf (0-2)
[2020-03-11 17:02] LABS: Add Urine Culture? No; Bacteria Urine TRACE /hpf; Squamous Epithelial Cell Urine 0-4 /hpf (0-5)
[2020-03-11 17:07] VITALS: BP 183/98; PULSE 80; RESP 24; O2SAT 94
[2020-03-11] MEDS: potassium chloride ER 10 mEq Tablet 20 MEQ PO (17:49)
[2020-03-11 17:50] LABS: Magnesium 1.8 mg/dL (1.7-2.3)
--- NOTE | 2020-03-11 17:52 | ECG_ITS ---
[facility] Test Date: 2020-03-11 Pat Name: Andree Moe Department: Room: Gender: Female Dry Wall Installer: : 1935 Requested By: Coral Hoffman Order Number: [id number] Nemesio MD: Carlos Mcbride M.D. Measurements Intervals [place] Rate: 73 P: 74 PA: 139 QRS: -62 QRSD: 94 T: 2 QT: 409 QTc: 451 Interpretive Statements SINUS RHYTHM WITH OCCASIONAL SUPRAVENTRICULAR PREMATURE COMPLEXES INCOMPLETE RIGHT BUNDLE BRANCH BLOCK [90+ ms QRS DURATION, TERMINAL R IN V1/V2, 40+ ms S IN I/aVL/V4/V5/V6] LEFT ANTERIOR FASCICULAR BLOCK [QRS AXIS <= -45, QR IN I, RS IN II] Compared to ECG 03/11/2020 15:40:20 T-wave abnormality no longer present Electronically Signed On 03-11-2020 20:11:07 CDT by Carlos Mcbride M.D. [id number]
[2020-03-11 18:24] LABS: Troponin 5 2HR 19.68 ng/L (0-10); Troponin 5 2HR Delta 0.68 ABS# (0-10)
[2020-03-11 18:31] VITALS: BP 207/119; PULSE 87; RESP 20
--- NOTE | 2020-03-11 18:48 | PM.HP ---
Providers/Chief Complaint Primary Care Provider: Neal Whaley MD Chief Complaint: GENERALIZED WEAKNESS History of Present Illness Andree Moe is a 85 year old female with weakness and confusion. There was concern patient was acting tired this morning at [facility] where she lives. They checked on her this afternoon and she was sleeping. Upon awakening she was confused. She had not had any cough, vomiting, diarrhea, or fever that was noted at [facility]. Daughter was called and directed that she be brought to the emergency department. In the ER at the daughter reports that her confusion is back to baseline. However, weakness and temperature elevation were present with a temperature of 100.4. Daughter relates no exposure to COVID, or personal history of COVID. Patient is confused and cannot answer review of systems questions. No new medications according to daughter. Review of Systems General: Reports: ROS unobtainable due to mental status (Cannot perform secondary to dementia) Medications/Allergies Home Medications Medication Instructions Recorded Confirmed Last Taken Type atorvastatin 10 mg PO BEDTIME 11/27/19 03/11/20 03/10/20 History fluticasone propionate [Flonase 2 spray INTRANASAL DAILY 11/27/19 03/11/20 Unknown History Allergy Relief] lorazepam See Rx Instructions .ROUTE 11/27/19 03/11/20 03/11/20 History .COMPLEX PRN metoprolol succinate 25 mg PO DAILY 11/27/19 03/11/20 03/11/20 History Ex-Lax Chocolate 1 tab PO DAILY PRN 03/11/20 03/11/20 Unknown History Lactobacillus rhamnosus GG 1 cap PO DAILY PRN 03/11/20 03/11/20 Unknown History [Culturelle] acetaminophen [Tylenol] 650 mg PO QID PRN 03/11/20 03/11/20 Unknown History bisacodyl 10 mg HI DAILY PRN 03/11/20 03/11/20 Unknown History docusate sodium [Colace] 100 mg PO BID 03/11/20 03/11/20 03/11/20 History donepezil [Aricept] 10 mg PO DAILY 03/11/20 03/11/20 03/11/20 History magnesium hydroxide [Milk of 30 ml PO DAILY PRN 03/11/20 03/11/20 Unknown History Magnesia] sodium phosphates [Fleet Enema] 118 ml HI DAILY PRN 03/11/20 03/11/20 Unknown History Allergies Allergy/AdvReac Type Severity Reaction Status Date / Time aspirin Allergy Unknown Verified 03/11/20 16:05 ciprofloxacin Allergy ALGY-Rash Verified 03/11/20 16:05 clarithromycin Allergy ALGY-Rash Verified 03/11/20 16:05 doxycycline Allergy ALGY-Rash Verified 03/11/20 16:05 erythromycin base Allergy ALGY-Rash Verified 03/11/20 16:05 penicillin V [From Pen-Vee K] Allergy Unknown Verified 03/11/20 16:05 Penicillins Allergy ALGY-Rash Verified 03/11/20 16:05 prednisone Allergy ADR-Dizzine Verified 03/11/20 16:05 ss Sulfa (Sulfonamide Allergy ALGY-Rash Verified 11/27/19 12:42 Antibiotics) sulfadiazine Allergy Unknown Verified 03/11/20 16:05 PFSH Acute PFSH: Medical History (Updated 03/11/20 @ 19:02 by Ariel Owens MD) Constipation Dementia Hyperlipidemia Hypertension Family History (Updated 03/11/20 @ 18:54 by Ariel Owens MD) Other Dementia Social History (Updated 03/11/20 @ 18:54 by Ariel Owens MD) Smoking and tobacco status: former smoker Alcohol intake: never Supplemental PFSH Information: Daughter reports no significant surgical history Vitals/I&O/Wt Last Vital Signs Temp 100.4 F H 03/11/20 15:31 Pulse 87 03/11/20 18:31 Resp 20 H 03/11/20 18:31 BP 207/119 03/11/20 18:31 Pulse Ox 94 03/11/20 17:07 Physical Exam Narrative: EXAM NARRATIVE: General exam is a white female, agitated and having to stay at the hospital, who is demented but can carry on short strings of conversation. Neurologic: No obvious focal deficits, moving all 4 extremities. I did not get her up and walker but there are no obvious cerebellar signs HEENT: Pupils equally round. Oropharynx clear. Neck is supple no lymphadenopathy or thyromegaly Cardiovascular regular rate and rhythm with a 2/6 systolic murmur Lungs clear no wheezing or crackles Abdomen is soft nontender with positive bowel sounds. No obvious organomegaly was deferred Extremities no cyanosis clubbing or edema, cap refill brisk Skin no rash Data : 03/11/20 16:05 03/11/20 16:05 Micro: Microbiology 03/11/20 16:05 Blood Culture - Preliminary Blood SPECIMEN COLLECTED 03/11/20 16:00 Blood Culture - Preliminary Blood SPECIMEN COLLECTED Other data: Chest x-ray appears normal Liver function tests normal. Troponin XIX at baseline and repeat at 120 minutes 19.7 Urinalysis 0-4 reds and no whites Urine drug screen positive for benzos I have asked that a COVID test to be performed which is pending CT head and neck demonstrate no acute findings. A&P Assessment and plan (1) Weakness: Etiology unknown. Potassium only mildly low. Nursing facility reports she has not been drinking as well as usual. Hydrate Check magnesium level Potassium is already been supplemented PT evaluation in the morning Check TSH as well. Status: Acute (2) Temperature elevation: No obvious infection on laboratory testing. Hold off on antibiotics currently. With benign abdominal exam I am going to hold off on CT abdomen and pelvis unless temperature increases. No evidence on physical exam of meningitis Will check rapid COVID Status: Acute Additional A&P Information Hypertension. Continue home meds. Hydralazine PRN Dementia. Sitter. She has significant wandering and risk for fall as she was found on the floor at [facility] Chronic constipation Hyperlipidemia Multiple other medical problems as outlined in her past medical history. Tried to review CODE STATUS at facility but they do not have a CODE STATUS listed. Therefore for now she will be full code until this can be reviewed again with the daughter. Lovenox for DVT prophylaxis Rapid COVID is positive. Will add ferritin and d-dimer. I have discussed the rapid COVID test with the ER physician, split leather department supervisor of medicine as well as department had of emergency medicine considering we have no COVID rooms available. At this point she is going to be closely followed in the emergency department overnight and if improved and/or stable will be discharged back to facility. As she is not going to be admitted as an observation or full admission to the hospital at this time this document should serve as a consultation. Attestations Medical Necessity Statement*: Not applicable, this document is a consultation Time Spent in Patient Care: Greater than 35 minutes Coding Level of Care Code Acute Street Light Servicer Supervisor for Chg Fwd Diagnoses Weakness R53.1 Temperature elevation R50.9
[2020-03-11 19:02] LABS: SARS Covid-2 Antigen Positive (Negative)
[2020-03-11 19:27] LABS: Procalcitonin 0.09 ng/mL (0-0.5); Thyroid Stimulating Hormone 0.95 uIU/mL (0.27-4.20)
[2020-03-11] MEDS: sodium chloride 0.9% 1,000 ML 100 ML IV (19:45)
--- NOTE | 2020-03-11 19:54 | PC.NURSE ---
Randa from [facility] states pt is a DNR but does not have the paperwork. Fax number provided
[2020-03-11 20:06] LABS: Ferritin 134 ng/mL (15-150)
[2020-03-11 20:14] LABS: D Dimer 0.57 ug/mIFEU (0-0.59)
[2020-03-11 23:00] VITALS: BP 187/84; O2SAT 95
[2020-03-12] VITALS (11 sets, daily range): BP systolic 159–201; BP diastolic 84–116; PULSE 65–78; RESP 16–23; TEMP 37.2–37.5; O2SAT 92–100
--- NOTE | 2020-03-12 07:30 | P.PN_ITS ---
Subjective Subjective: Interval history: Following up patient in the emergency department. No fever noted overnight. Patient reports she does not feel great but does not feel bad either. Certainly less agitated than yesterday. Has not required any oxygen overnight. Medications: Reviewed: Yes Vitals/I&O/Wt Last Vital Signs Temp 99.5 F 03/12/20 04:00 Pulse 71 03/12/20 06:30 Resp 19 H 03/12/20 06:30 BP 159/85 03/12/20 06:30 Pulse Ox 93 03/12/20 06:30 Physical Exam Narrative: EXAM NARRATIVE: General exam no apparent distress Cardiovascular regular rate and rhythm Lungs clear Abdomen is soft with positive bowel sounds Extremities no cyanosis clubbing or edema Data : 03/11/20 16:05 03/11/20 16:05 Micro: Microbiology 03/11/20 16:05 Blood Culture - Preliminary Blood SPECIMEN COLLECTED 03/11/20 16:00 Blood Culture - Preliminary Blood SPECIMEN COLLECTED A&P Assessment and plan (1) COVID-19: Rapid COVID positive yesterday. Afebrile. Not requiring oxygen. Laboratory pending this morning. Inflammatory markers yesterday essentially negative. At this point if she is able to tolerate p.o., and can ambulate she can be discharged with close outpatient follow-up in the next 2 to 3 days with her primary. Secondary to significant lack of symptoms other than 1 elevated temperature and weakness, would not initiate steroids currently as this may worsen agitation from dementia. Status: Acute Additional A&P Information Dementia. Currently appears calm Hypertension, continue home medicines Multiple other medical problems as outlined in past medical history Full code Attestations Medical Necessity Statement*: Not applicable Coding Level of Care Code Acute Registered Dietetic Technician for Chg Fwd Diagnoses COVID-19 U07.1
[2020-03-12] MEDS: metoprolol succinate ER (24 HR) 25 mg Tablet PO (08:27)
[2020-03-12] MEDS: docusate sodium 100 mg Capsule PO (08:27)
[2020-03-12 08:48] LABS: Basophils % 0.3 %; Hematocrit 47.2 % (37.0-47.0); Hemoglobin 15.8 g/dL (11.5-15.3); Lymphocytes % 13.9 %; Mean Corpuscular HGB Conc 33.5 g/dL (30.0-36.0); Mean Corpuscular Volume 92.7 fL (81-99); Mean Platelet Volume 10.4 fL (7.4-10.4); Monocytes # 0.9 10^3/uL (0.2-0.9); Monocytes % 12.7 %; Nucleated Red Blood Cells % 0 %; Platelet Count 177 10^3/cmm (130-400); Red Blood Count 5.09 10^6/uL (4.1-5.3); Red Cell Distribution Width 12.6 % (12.1-15.1)
--- NOTE | 2020-03-12 08:50 | PC.NURSE ---
During patient report, Linda reported patient has not been on oxygen through the night, however vital documentation states she is on 2L [place]. Patient was not on oxygen upon patient rounding at 0700
[2020-03-12 09:15] LABS: Anion Gap 14.7 (5-19); Blood Urea Nitrogen 10 mg/dL (8-23); Calcium 8.8 mg/dL (8.5-10.5); Carbon Dioxide 25 mmol/L (22-29); Chloride 100 mmol/L (98-107); Glucose 101 mg/dL (65-115); Osmolality Calculated 278 mOsm/kg (285-295); Potassium 3.7 mmol/L (3.5-5.1); Sodium 136 mmol/L (136-145)
--- NOTE | 2020-03-12 12:28 | PC.NURSE ---
Talked with Temitope manager cancer at [facility] to explain COVID test. Stated she understood and was working on setting up room and transportation for patient to return to [place]
== END 2020-03-12 12:45 | disposition home or self-care (01) ==
PROVIDERS: Family Medicine; Internal Medicine; Physician Assistant; Emergency Provider Emergency Medicine; PCP Family Medicine
DX: R53.1 Weakness (principal); U07.1 COVID-19; F03.90 Unspecified dementia, unspecified severity, without behavioral disturbance, psychotic disturbance, mood disturbance, and anxiety; E78.5 Hyperlipidemia, unspecified; I10 Essential (primary) hypertension; Z87.891 Personal history of nicotine dependence; Z79.899 Other long term (current) drug therapy
CPT/HCPCS: 12345; 36415; 70450; 71045; 72125; 80048; 80053; 80306; 81001; 82728; 83605; 83735; 84145; 84443; 84484; 85025; 85378; 87040; 87426; 93005; 96360; 96361; 99284; J7030

== ENCOUNTER 2020-03-17 14:19 | Emergency (ER) | payer MEDICARE, MEDICAID, SELFPAY ==
[2020-03-17 14:35] VITALS: BP 178/95; PULSE 71; RESP 20; TEMP 37.7; O2SAT 93; BMI 20.3
[2020-03-17 14:49] VITALS: PULSE 72; RESP 20; TEMP 37.7; O2SAT 96
--- NOTE | 2020-03-17 15:12 | XR_ITS ---
WS: [id number] EXAM: AP CHEST: PORTABLE SEMIUPRIGHT DATE OF EXAM: 03/17/2020, 1533 hour COMPARISON: Chest x-ray from 03/11/2020. HISTORY: Patient is 85 years old with Cobra 19 infection. FINDINGS: The cardiac silhouette is stable. Considered upper limits of normal. The mediastinal contours are similar. Calcified plaque in the aorta. Subcarinal calcified lymph nodes. The pulmonary vascularity is normal. Fairly severe chronic lung changes are demonstrated. Some degree of fibrosis is seen jose daniel aterally. Lungs are clear of consolidation. A few calcified granulomas seen. There is no effusion or pneumothorax. Overall bone density is markedly decreased. XR/XR chest 1V portable [id number] IMPRESSION: COPD changes with underlying fibrosis. No area of consolidating infiltrate.
--- NOTE | 2020-03-17 15:31 | W.ED.FEVER ---
HPI - Fever General: Chief Complaint: Fever Stated Complaint: COVID +, ? PNEUMONIA Time Seen by Provider: 03/17/20 14:59 Source: RN notes reviewed History of Present Illness: HPI Narrative: 85-year-old female that resides at snf that is known to be positive for COVID was sent here for evaluation apparently of fever. She has a DURABLE POWER OF MISCELLANEOUS MACHINE OPERATOR with her in the chart and is DNR I have reviewed this. It appears her daughter is her power of disability attorney. Patient will not speak to me or give me any information so all information is from EMS apparently she did nod her head yes and no for the nurse. When I ask her if she has pain anywhere her eyes are open but there is no response. Same thing with every question I asked including chest pain shortness of breath or cough. I have no idea what her temperature was even up to because there is no documentation of a specific number. MD elicited complaint: fever PFSH ED PFSH: Medical History (Updated 03/17/20 @ 16:15 by Tila Angelo MD) Constipation Dementia Hyperlipidemia Hypertension Family History (Updated 03/11/20 @ 18:54 by Ariel Owens MD) Other Dementia Social History (Updated 03/11/20 @ 18:54 by Ariel Owens MD) Smoking and tobacco status: former smoker Alcohol intake: never Physical Exam Const: COMMON NORMALS: no acute distress, alert and well nourished OTHER: will not speak to me or the nurse. shakes head for nurses questions but not mine HENMT: COMMON NORMALS: normocephalic and Normal external nose present HEAD & SCALP: normocephalic NOSE: Normal external nose present MOUTH: no trismus Eye: COMMON NORMALS: EOMs intact bilaterally and conjunctivae normal CONJUNCTIVA: Yes conjunctivae normal Neck/C-Spine: COMMON NORMALS: full ROM, no lymphadenopathy and supple CERVICAL SPINE: Yes cervical ROM normal Lymph: LYMPHATIC: no lymphadenopathy noted Resp: COMMON NORMALS: normal respiratory effort, No retractions, No use of accessory muscles and clear to auscultation bilaterally EFFORT & INSPECTION: Yes able to speak in complete sentences AUSCULTATION: clear to auscultation bilaterally Cardio: COMMON NORMALS: regular rate and regular rhythm RATE: regular rate RHYTHM: regular rhythm GI: COMMON NORMALS: Normal to inspection, nondistended, normoactive bowel sounds present, Soft to palpation, non-tender and no masses INSPECTION: Yes normal to inspection AUSCULTATION: Yes normoactive bowel sounds PALPATION: Yes Soft to palpation, No Guarding due to palpation present (GI) and No Rigid due to palpation Back/Pelvis: OTHER: Normal range of motion Extremity: GENERAL: Yes normal exam except as noted Neuro: COMMON NORMALS: CN's II-XII intact bilaterally SENSORIUM/ORIENTATION: Yes alert Psych: MOOD & AFFECT: Yes Flat affect present Skin: COMMON NORMALS: no rashes or lesions noted GENERAL SKIN EXAM: no rashes or lesions noted Course Vital Signs: Vital signs: Vital Signs Temperature 98.9 F 03/17/20 17:21 Pulse Rate 87 03/17/20 17:21 Respiratory Rate 18 03/17/20 17:21 Blood Pressure 138/75 03/17/20 17:21 Pulse Oximetry 93 03/17/20 17:21 MDM - Fever MDM Narrative: Medical decision making narrative: Patient with known COVID-19 positive testing that resides at a snf secondary dementia who is also DNR including no antibiotics. She was evaluated here chest x-ray does not show any acute pneumonia. She was standing up in the room when the nurse went to return evaluate her we did get a sat with her walking around in the room on room air that was greater than 95%. She is in no distress and she actually told the nurse at one point that she was ready to go home now. At this point there is no need for further treatment in the hospital she is known to have COVID-19 she is not requiring oxygen and does not need admission will discharge back to the snf. Patient was standing at the door during the last hour hour and a half of her stay here while waiting on transport back to the snf in no distress. She was visibly excited when transport arrived to take her back to the snf. Imaging Data^: CXR: Radiologist's impression: [facility] [address] [place] [address] XRay Report Signed Patient: Andree Moe #: [id number] : 1935Acct#:[id number] Age/Sex: 85 / FADM Date: 03/17/20 Loc: ERRoom/Bed: Attending Dr: Ordering Provider/Ordering MD: Tila Angelo MD Date of Service: 03/17/20 Procedure(s): XR chest 1V portable [id number] Accession Number(s): [id number] Report Number: [id number] WS: [id number] EXAM: AP CHEST: PORTABLE SEMIUPRIGHT DATE OF EXAM: 03/17/2020, 1533 hour COMPARISON: Chest x-ray from 03/11/2020. HISTORY: Patient is 85 years old with Cobra 19 infection. FINDINGS: The cardiac silhouette is stable. Considered upper limits of normal. The mediastinal contours are similar. Calcified plaque in the aorta. Subcarinal calcified lymph nodes. The pulmonary vascularity is normal. Fairly severe chronic lung changes are demonstrated. Some degree of fibrosis is seen bilaterally. Lungs are clear of consolidation. A few calcified granulomas seen. There is no effusion or pneumothorax. Overall bone density is markedly decreased. XR/XR chest 1V portable [id number] IMPRESSION: COPD changes with underlying fibrosis. No area of consolidating infiltrate. Dictated By:Albert Welch MD Signed By:Albert Welch MDSigned Date/Time:03/17/201554 DD/ 1546 Discharge Plan Discharge Patient Disposition: Home Clinical Impression: COVID-19 Condition: Stable Prescriptions: No Action atorvastatin 10 mg tablet 10 mg PO BEDTIME RF: 0 lorazepam 0.5 mg tablet See Rx Instructions .ROUTE .COMPLEX PRN (Reason: Anxiety) RF: 0 metoprolol succinate 25 mg tablet extended release 24 hr 25 mg PO DAILY RF: 0 fluticasone propionate [Flonase Allergy Relief] 50 mcg/actuation spray,suspension 2 spray INTRANASAL DAILY RF: 0 acetaminophen [Tylenol] 325 mg Tablet 650 mg PO QID PRN (Reason: Pain) RF: 0 donepezil [Aricept] 10 mg Tablet 10 mg PO DAILY RF: 0 magnesium hydroxide [Milk of Magnesia] 400 mg/5 mL Suspension 30 ml PO DAILY PRN (Reason: Constipation) RF: 0 bisacodyl 10 mg Suppository 10 mg WI DAILY PRN (Reason: Constipation) RF: 0 Fleet Enema 19-7 gram/118 mL Enema 118 ml WI DAILY PRN (Reason: Constipation) RF: 0 docusate sodium [Colace] 100 mg Capsule 100 mg PO BID RF: 0 Culturelle 10 billion cell Capsule 1 cap PO DAILY PRN (Reason: unknown) RF: 0 Discharge Orders: Discharge Order (Routine); Ordered 03/17/20 Ordered By: Tila Angelo Referrals: Neal Whaley MD [Primary Care Provider] - Patient Instructions: Fever - Adult Activity Restrictions/Additional Instructions: pt not requiring supplemental o2 here even with exertional testing. chest xray unremarkable. Temp here was only 99.9. Does not need admission Discharge Date/Time: 03/17/20 17:24 Coding Level of Care Code ED Product Technician for Chg Fwd Exam Comprehensive
--- NOTE | 2020-03-17 15:37 | PC.NURSE ---
Making Rounds, found pt standing bedside the bed asking are we about done . Encouraged pt to get back in the bed. No signs of trauma or any injures noted. Informed Dr Angelo.
--- NOTE | 2020-03-17 16:09 | PC.NURSE ---
Pt up walking around in the room. Offered water, and applesauce. Pt not understanding due to dementia.
--- NOTE | 2020-03-17 16:34 | PC.NURSE ---
Made transportation arrangements and have a ticket number #[id number]. Called and informed Roddy Ruiz that pt is ready and needs to come back to the facility. Pt is up walking around in the room and is irritated and ready to leave.
[2020-03-17 17:21] VITALS: BP 138/75; PULSE 87; RESP 18; TEMP 37.2; O2SAT 93
== END 2020-03-17 17:24 | disposition home or self-care (01) ==
PROVIDERS: Emergency Provider Emergency Medicine; PCP Family Medicine
DX: U07.1 COVID-19 (principal); F03.90 Unspecified dementia, unspecified severity, without behavioral disturbance, psychotic disturbance, mood disturbance, and anxiety; E78.5 Hyperlipidemia, unspecified; I10 Essential (primary) hypertension; Z87.891 Personal history of nicotine dependence
CPT/HCPCS: 12345; 51702; 71045; 99283

== ENCOUNTER 2020-03-21 06:38 | Emergency (ER) | payer MEDICARE, MEDICAID, SELFPAY ==
[2020-03-21] VITALS (20 sets, daily range): BP systolic 116–184; BP diastolic 69–95; PULSE 60–98; RESP 15–20; TEMP 37.2; O2SAT 88–99; BMI 19.8
--- NOTE | 2020-03-21 06:57 | ECG_ITS ---
[facility] Test Date: 2020-03-21 Pat Name: Andree Moe Department: Room: Gender: Female Principal Biostatistician: : 1935 Requested By: Elizabeth Wright Order Number: [id number] Nemesio MD: Mao Elizabeth M.D. Measurements Intervals Ramer Rate: 84 P: 86 CT: 140 QRS: -57 QRSD: 114 T: 43 QT: 389 QTc: 462 Interpretive Statements SINUS RHYTHM LEFT ANTERIOR FASCICULAR BLOCK [QRS AXIS <= -45, QR IN I, RS IN II] Compared to ECG 03/11/2020 18:00:27 Incomplete right bundle-branch block no longer present Electronically Signed On 03-21-2020 17:34:40 CDT by Mao Elizabeth M.D. [id number] f
--- NOTE | 2020-03-21 06:57 | XRR_ITS ---
PROCEDURE INFORMATION: Exam: XR Chest, 1 View Exam date and time: 03/21/2020 7:35 AM Age: 85 years old Clinical indication: Shortness of breath; Additional info: Covid TECHNIQUE: Imaging protocol: XR of the chest Views: 1 view. COMPARISON: CR XR chest 1V portable [id number] 03/17/2020 3:29 PM FINDINGS: Lungs: Areas of interstitial thickening/coarsening. Lingular pleural thickening or superimposed soft tissue opacity. Hyperinflation. Limited assessment of the lower left lung. Pleural space: Unremarkable. No pleural effusion. No pneumothorax. Heart/Mediastinum: Mediastinal calcified lymph nodes. Cardiomegaly. Bones/joints: Degenerative change of the spine. Osteopenia. XR/XR chest 1V portable [id number] IMPRESSION: 1. Cardiomegaly. 2. Interstitial thickening/coarsening on a chronic basis. 3. Pleural thickening versus superimposed soft tissue opacity left costophrenic angle.
--- NOTE | 2020-03-21 06:59 | ED_ITS ---
HPI - SOB/Dyspnea General: Chief Complaint: Shortness of Breath/Dyspnea Stated Complaint: covid and low o2 Time Seen by Provider: 03/21/20 06:47 History of Present Illness: HPI Narrative: This patient is an 85-year-old female who was brought to the ED today for shortness of breath. She was diagnosed with COVID 10 days ago. She is a resident at [facility]. She has a history of dementia and is not able to provide much history. She apparently also was found on the floor this morning and staff think she was try to get up to go to the bathroom. She does not appear to have any injuries from the fall. Baseline mental status per with the staff told EMS is that she can be conversational but confused. Today she is really not verbal with us. EMS reports that on their arrival she was not on oxygen and her saturations were in the low 80s. They had her on 6 L nasal cannula and were able to get her sats up into the low 90s. MD elicited complaint: shortness of breath and cough Review of Systems General: Reports: ROS unobtainable due to medical condition and ROS unobtainable due to mental status [facility] PFSH: Medical History Constipation Dementia Hyperlipidemia Hypertension Family History (Updated 03/11/20 @ 18:54 by Ariel Owens MD) Other Dementia Social History Smoking and tobacco status: former smoker Alcohol intake: never Physical Exam Const: COMMON NORMALS: alert GENERAL APPEARANCE: cooperative, ill appearing and frail appearing NUTRITIONAL APPEARANCE: thin HENMT: HEAD & SCALP: normal to inspection FACE & SINUS: normal facial exam Eye: GENERAL EYE: appearance normal, both eyes and all related structures Neck/C-Spine: COMMON NORMALS: supple, no meningeal signs and no JVD Chest: COMMONS NORMALS: normal inspection of the chest Resp: EFFORT & INSPECTION: Yes tachypneic and Yes labored AUSCULTATION: diminished lung sounds Cardio: COMMON NORMALS: no JVD, regular rate, regular rhythm and No murmurs present (Cardio) RATE: regular rate RHYTHM: regular rhythm GI: COMMON NORMALS: Normal to inspection, nondistended, normoactive bowel sounds present, Soft to palpation and non-tender INSPECTION: Yes normal to inspection AUSCULTATION: Yes normoactive bowel sounds PALPATION: Yes Soft to palpation Back/Pelvis: COMMON NORMALS: thoracic and lumbar spine normal to inspection Extremity: COMMON NORMALS: normal to inspection Neuro: COMMON NORMALS: moves all extremities, no focal motor deficits and no sensory deficits noted SENSORIUM/ORIENTATION: Yes alert MENINGEAL SIGNS: Yes no meningeal signs Psych: COMMON NORMALS: mental status grossly normal, cooperative and normal affect Skin: COMMON NORMALS: no rashes or lesions noted and turgor normal GENERAL SKIN EXAM: no rashes or lesions noted and turgor normal Course ED course: I had a long conversation by phone with this patient's family and power of attorney recruiter. We discussed her recent course of frequent hospitalizations. The patient has dementia and her daughter was very open to the idea of comfort care. She did not want her to be intubated or put on a start of invasive treatment per the patient's wishes. This is reflected in the [facility]'s [facility] the [facility]. We discussed the various options for treatment including admission to the hospital for remdesivir but short of intubation and mechanical ventilation. We discussed pros and cons of these various options and ultimately together decided that we would have her go back to [facility] with oxygen and ultimately a plan for comfort care if you got worse and required more intervention. Vital Signs: Vital signs: Vital Signs Temperature 99 F 03/21/20 06:50 Pulse Rate 65 03/21/20 15:00 Respiratory Rate 16 03/21/20 15:00 Blood Pressure 128/71 03/21/20 15:00 Pulse Oximetry 98 03/21/20 15:00 MDM - SOB/Dyspnea Lab Data: Labs: Lab Results 03/21/20 03/21/20 03/21/20 Range/Units 07:05 07:05 07:05 WBC 10.4 H (4.0-10.0) 10^3/ uL RBC 4.76 (4.1-5.3) 10^6/u L Hgb 14.6 (11.5-15.3) g/dL Hct 44.3 (37.0-47.0) % MCV 93.1 (81-99) fL MCH 30.7 (28.0-34.0) pg MCHC 33.0 (30.0-36.0) g/dL RDW 12.2 (12.1-15.1) % Plt Count 99 L (130-400) 10^3/c mm MPV 11.8 H (7.4-10.4) fL Neut % (Auto) 89.1 % Lymph % (Auto) 5.6 % [place] % (Auto) 4.4 % Eos % (Auto) 0.1 % Baso % (Auto) 0.2 % Neut # (Auto) 9.31 H (1.8-7.7) 10^3/u L Lymph # (Auto) 0.6 L (0.8-4.8) 10^3/u L [place] # (Auto) 0.5 (0.2-0.9) 10^3/u L Eos # (Auto) 0.0 (0.0-0.8) 10^3/u L Baso # (Auto) 0.0 (0.0-0.1) 10^3/u L Nucleated RBC % (a uto) 0 % Nucleated RBCs # 0.0 /100WBC PT (12.1-14.9) SECO NDS INR (0.8-1.2) D-Dimer (0-0.59) ug/mIFE U Sodium 136 (136-145) mmol/L Potassium 3.3 L (3.5-5.1) mmol/L Chloride 98 (98-107) mmol/L Carbon Dioxide 24 (22-29) mmol/L Anion Gap 17.3 (5-19) BUN 21 (8-23) mg/dL Creatinine 0.7 (0.5-0.9) mg/dL GFR Calculation Not Reportable Glucose 118 H (65-115) mg/dL Calculated Osmolal ity 286 (285-295) mOsm/k g Lactic Acid 1.2 (0.5-2.2) mmol/L Calcium 8.1 L (8.5-10.5) mg/dL Magnesium 1.6 L (1.7-2.3) mg/dL Total Bilirubin 0.7 (0.15-1.2) mg/dL AST 33 H (0-32) U/L ALT 22 (0-33) U/L Alkaline Phosphata se 62 (35-105) IU/L Troponin T Gen 5 n g/L (0-10) ng/L C-Reactive Protein 22.7 H (0.0-4.9) mg/L NT-Pro-B Natriuret Pep 833 H (0-450) pg/mL Total Protein 6.0 L (6.6-8.7) g/dL Albumin 3.9 (3.5-5.2) g/dL Globulin 2.1 (1.3-4.6) g/dL Procalcitonin 0.10 (0-0.5) ng/mL 03/21/20 03/21/20 Range/Units 07:05 07:05 WBC (4.0-10.0) 10^3/ uL RBC (4.1-5.3) 10^6/u L Hgb (11.5-15.3) g/dL Hct (37.0-47.0) % MCV (81-99) fL MCH (28.0-34.0) pg MCHC (30.0-36.0) g/dL RDW (12.1-15.1) % Plt Count (130-400) 10^3/c mm MPV (7.4-10.4) fL Neut % (Auto) % Lymph % (Auto) % [place] % (Auto) % Eos % (Auto) % Baso % (Auto) % Neut # (Auto) (1.8-7.7) 10^3/u L Lymph # (Auto) (0.8-4.8) 10^3/u L [place] # (Auto) (0.2-0.9) 10^3/u L Eos # (Auto) (0.0-0.8) 10^3/u L Baso # (Auto) (0.0-0.1) 10^3/u L Nucleated RBC % (a uto) % Nucleated RBCs # /100WBC PT 11.40 L (12.1-14.9) SECO NDS INR 0.81 (0.8-1.2) D-Dimer 5.95 H (0-0.59) ug/mIFE U Sodium (136-145) mmol/L Potassium (3.5-5.1) mmol/L Chloride (98-107) mmol/L Carbon Dioxide (22-29) mmol/L Anion Gap (5-19) BUN (8-23) mg/dL Creatinine (0.5-0.9) mg/dL GFR Calculation Glucose (65-115) mg/dL Calculated Osmolal ity (285-295) mOsm/k g Lactic Acid (0.5-2.2) mmol/L Calcium (8.5-10.5) mg/dL Magnesium (1.7-2.3) mg/dL Total Bilirubin (0.15-1.2) mg/dL AST (0-32) U/L ALT (0-33) U/L Alkaline Phosphata se (35-105) IU/L Troponin T Gen 5 n g/L 36 H (0-10) ng/L C-Reactive Protein (0.0-4.9) mg/L NT-Pro-B Natriuret Pep (0-450) pg/mL Total Protein (6.6-8.7) g/dL Albumin (3.5-5.2) g/dL Globulin (1.3-4.6) g/dL Procalcitonin (0-0.5) ng/mL Discharge Plan Discharge Patient Disposition: Home Clinical Impression: COVID-19, Hypoxia, Acute alteration in mental status Condition: Stable Prescriptions: No Action atorvastatin 10 mg tablet 10 mg PO BEDTIME RF: 0 lorazepam 0.5 mg tablet See Rx Instructions .ROUTE .COMPLEX PRN (Reason: Anxiety) RF: 0 metoprolol succinate 25 mg tablet extended release 24 hr 25 mg PO DAILY RF: 0 fluticasone propionate [Flonase Allergy Relief] 50 mcg/actuation spray,suspension 2 spray INTRANASAL DAILY RF: 0 acetaminophen [Tylenol] 325 mg Tablet 650 mg PO QID PRN (Reason: Pain) RF: 0 donepezil [Aricept] 10 mg Tablet 10 mg PO DAILY RF: 0 magnesium hydroxide [Milk of Magnesia] 400 mg/5 mL Suspension 30 ml PO DAILY PRN (Reason: Constipation) RF: 0 bisacodyl 10 mg Suppository [address] DAILY PRN (Reason: Constipation) RF: 0 Fleet Enema 19-7 gram/118 mL Enema [address] DAILY PRN (Reason: Constipation) RF: 0 docusate sodium [Colace] 100 mg Capsule 100 mg PO BID RF: 0 Culturelle 10 billion cell Capsule 1 cap PO DAILY PRN (Reason: unknown) RF: 0 Ex-Lax Chocolate See Rx Instructions .ROUTE .COMPLEX RF: 0 Discharge Orders: Discharge Order (Routine); Ordered 03/21/20 Ordered By: Elizabeth Madison Referrals: Neal Whaley MD [Primary Care Provider] - Discharge Diet: Usual diet Discharge Activity: Resume usual activity Activity Restrictions/Additional Instructions: Please start the patient on oxygen. She can have up to 6 L by nasal cannula to keep her oxygen saturation above 90%. Her daughter and POA will make her comfort care if she does not do well with this treatment and does not want her sent back to the hospital. The patient is a DNR. Discharge Date/Time: 03/21/20 15:37 Coding Level of Care Code ED Cellulose Insulation Helper for Chg Fwd Exam Comprehensive
[2020-03-21 07:31] LABS: Basophils % 0.2 %; Eosinophils % 0.1 %; Hematocrit 44.3 % (37.0-47.0); Hemoglobin 14.6 g/dL (11.5-15.3); Lymphocytes # 0.6 10^3/uL (0.8-4.8); Lymphocytes % 5.6 %; Mean Corpuscular Hemoglobin 30.7 pg (28.0-34.0); Mean Corpuscular Volume 93.1 fL (81-99); Mean Platelet Volume 11.8 fL (7.4-10.4); Monocytes # 0.5 10^3/uL (0.2-0.9); Monocytes % 4.4 %; Neutrophils # 9.31 10^3/uL (1.8-7.7); Neutrophils % 89.1 %; Nucleated Red Blood Cells % 0 %; Red Blood Count 4.76 10^6/uL (4.1-5.3); Red Cell Distribution Width 12.2 % (12.1-15.1); White Blood Count 10.4 10^3/uL (4.0-10.0)
[2020-03-21] MEDS: sodium chloride 0.9% 1,000 ML 75 ML IV (07:37)
[2020-03-21] MEDS: enoxaparin 60 mg/0.6 mL Syringe SUBCUT (07:40)
[2020-03-21] MEDS: dexamethasone 10 mg/mL INJ IVP (07:41)
[2020-03-21 07:46] LABS: INR 0.81 (0.8-1.2); Slide Review Slide Review Perform
[2020-03-21 07:47] LABS: Platelet Count 99 10^3/cmm (130-400)
[2020-03-21 07:53] LABS: Lactic Sepsis W/Reflex 1.2 mmol/L (0.5-2.2)
[2020-03-21 07:55] LABS: D Dimer 5.95 ug/mIFEU (0-0.59)
[2020-03-21 07:56] LABS: Troponin T (5th) Once 36 ng/L (0-10)
[2020-03-21 08:04] LABS: NT Pro B Type Natriuretic Pept 833 pg/mL (0-450)
[2020-03-21 08:15] LABS: Alanine Aminotransferase 22 U/L (0-33); Albumin Level 3.9 g/dL (3.5-5.2); Alkaline Phosphatase 62 IU/L (35-105); Blood Urea Nitrogen 21 mg/dL (8-23); C Reactive Protein 22.7 mg/L (0.0-4.9); Calcium 8.1 mg/dL (8.5-10.5); Carbon Dioxide 24 mmol/L (22-29); Chloride 98 mmol/L (98-107); Globulin 2.1 g/dL (1.3-4.6); Glucose 118 mg/dL (65-115); Magnesium 1.6 mg/dL (1.7-2.3); Osmolality Calculated 286 mOsm/kg (285-295); Sodium 136 mmol/L (136-145); Total Bilirubin 0.7 mg/dL (0.15-1.2)
[2020-03-21 08:21] LABS: Anion Gap 17.3 (5-19); Aspartate Amino Transferase 33 U/L (0-32); Potassium 3.3 mmol/L (3.5-5.1)
[2020-03-21] MEDS: haloperidol inj 5 mg/mL INJ 1 mL 2 MG IVP (08:33)
--- NOTE | 2020-03-21 10:15 | PC.NURSE ---
Patient continues resting without concerns noted. RR even and non-labored. She continues to be non-verbal and non-responsive. All monitoring in use. Patient is within view of nurses station.
--- NOTE | 2020-03-21 11:01 | PC.NURSE ---
report received from maria isabel jameson assumed care. pt taken to ct via stretcher and radio artist pt is in nad.
--- NOTE | 2020-03-21 11:09 | PC.NURSE ---
REPORT RECIEVED FROM LULU TOVAR ASSUMED CARE.
--- NOTE | 2020-03-21 11:14 | PC.NURSE ---
Patient resting in bed, RR even and nonlabored. Patient noted to be non-verbal and non-responsive to verbal stimuli. Patient is in direct view of nurses station. COVID precautions in use.
--- NOTE | 2020-03-21 11:19 | PC.NURSE ---
HTN noted, manual BP obtained 168/102, Dr. Madison notified. NO orders received. Patient continues resting in bed RR even and nonlabored, non-verbal and non-responsive to verbal stimuli. Patient is in direct view of nurses station.
--- NOTE | 2020-03-21 11:22 | PC.NURSE ---
Patient suddenly sitting up in bed with blank stare noted. Patient asked for her name and if she knew where she was. She double blinked to questions, no verbal response. I re-asked questions, double blinking noted to if she knew her name but when asked if she knew where she was and she shook her head no. Patient then closed her eyes and went back to sleep. Then as I was leaving room, patient randomly sitting up and attempting to OOB, nurse to bedside to re-direct patient. Patient slightly resistive to verbal commands, ED physician notified VO for Halodol.
--- NOTE | 2020-03-21 11:36 | PC.NURSE ---
Patient resting well after Haldol. No concerns are noted.
--- NOTE | 2020-03-21 11:48 | PC.NURSE ---
Patient resting in bed, RR even and nonlabored. Patient is in direct view of nurses station. COVID precautions in use.
== END 2020-03-21 15:37 | disposition home or self-care (01) ==
PROVIDERS: Emergency Provider Emergency Medicine; PCP Family Medicine
DX: U07.1 COVID-19 (principal); R09.02 Hypoxemia; R41.82 Altered mental status, unspecified; F03.90 Unspecified dementia, unspecified severity, without behavioral disturbance, psychotic disturbance, mood disturbance, and anxiety; E78.5 Hyperlipidemia, unspecified; I10 Essential (primary) hypertension; Z87.891 Personal history of nicotine dependence
CPT/HCPCS: 12345; 36415; 71045; 80053; 83605; 83735; 83880; 84145; 84484; 85025; 85378; 85610; 86140; 87040; 93005; 96365; 96372; 96375; 99284; J1100; J1630; J1650; J7030